=== PATIENT | male | born 1945 | race Caucasian/White ===

== ENCOUNTER 2019-10-27 09:07 | Outpatient (CLI) | payer MEDICARE, SELFPAY ==
--- NOTE | ~2019-10-27 | XR_ITS ---
XR lumbar spine 2-3V DATE: 10/27/2019 09:43 INDICATION: Chronic back pain. No known injury. TECHNIQUE: AP, lateral, coned lateral lumbosacral views COMPARISON: 05/10/2015 lumbar spine 10/08/2015 CT lumbar spine FINDINGS: There is minimal levoscoliosis. Again noted is severe degenerative disc disease and mild anterolisthesis at L2-3. There is moderate degenerative disc disease at L3-4. There is mild degenerative disease at L4-5. No fracture or bone destruction is evident. The included lower thoracic and lumbar pedicles are intac t. The sacroiliac joints are normal. IMPRESSION: Multilevel degenerative disc disease, most pronounced at L2-3, with associated grade 1 an terolisthesis Reviewed, dictated and finalized at location A. IMPRESSION: Multilevel degenerative disc disease, most pronounced at L2-3, with associated grade 1 anterolisthesis
[2019-10-27 09:20] LABS: Basophils Absolute Auto 0.01 K/mm3 (0.00-0.10); Basophils Percent Auto 0.1 % (0.0-1.0); Eosinophils Absolute Auto 0.12 K/mm3 (0.02-0.50); Eosinophils Percent Auto 1.7 % (1.0-6.0); Hematocrit 48.7 % (37.0-46.0); Hemoglobin 15.9 g/dL (12.4-15.3); Immature Granulocyte Absolute 0.02 K/mm3 (0.00-0.00); Immature Granulocyte Percent A 0.3 % (0.0-0.0); Lymphocytes Absolute Auto 1.19 K/mm3 (1.10-4.50); Mean Corpuscular HGB Conc 32.6 g/dL (32.0-36.0); Mean Corpuscular Hemoglobin 29.9 pg (27.0-31.0); Mean Corpuscular Volume 91.7 fL (78.0-102.0); Mean Platelet Volume 8.6 fl (8.7-11.0); Monocytes Absolute Auto 0.49 K/mm3 (0.10-0.90); Neutrophils Absolute Auto 5.2 K/mm3 (1.7-7.2); Neutrophils Percent Auto 73.9 % (50.0-70.0); Platelet Count Result 299 K/mm3 (150-420); Red Blood Count 5.31 M/mm3 (4.70-6.10); Red Cell Distribution Width 11.9 % (11.6-14.4)
[2019-10-27 09:23] LABS: Appearance Urine Clear (Clear); Bilirubin Urine Negative (Negative); Color Urine Yellow (Yellow); Glucose Urine UA Negative (Negative); Ketones Urine Negative (Negative); Leukocyte Esterase Ur Negative (Negative); Nitrate Urine Negative (Negative); Protein Urine Negative (Negative); Urobilinogen Urine 0.2 mg/dL (0.2-1.0)
[2019-10-27 09:30] LABS: Add Urine Microscopic? YES; Blood Urine Trace (Negative); RBC Urine 0-2 /hpf (0-2)
[2019-10-27 09:31] LABS: Bacteria Urine Trace /hpf; WBC Urine 0-3 /hpf (0-3)
[2019-10-27 10:10] LABS: Alanine Aminotransferase 32 U/L (16-63); Albumin Level 4.1 g/dL (3.4-5.0); Alkaline Phosphatase 70 U/L (46-116); Anion Gap 6 mmol/L (8-16); Aspartate Amino Transferase 19 U/L (15-37); Bilirubin,Total 0.8 mg/dL (0.00-1.00); Blood Urea Nitrogen 12 mg/dL (7-18); Calcium 9.3 mg/dL (8.5-10.1); Carbon Dioxide 30 mmol/L (21-32); Chloride 105 mmol/L (98-108); Cholesterol 241 mg/dL (0-200); Estimated Glomerular Filt Rate 57; Glucose 100 mg/dL (70-99); HDL Direct 60 mg/dL (40-60); LDL Cholesterol Calculated 156 mg/dL (<130); Osmolality Calculated 291 mOsm/kg (285-295); Potassium 4.4 mmol/L (3.5-5.1); Prostate Specific Antigen 3.3 ng/mL (< OR = 4.0); Sodium 141 mmol/L (136-145); Thyroid Stimulating Hormone 3.29 uIU/mL (0.36-3.74); Total Protein 7.2 g/dL (6.4-8.2); Triglycerides 126 mg/dL (0-150)
== END 2019-10-27 09:08 | disposition home or self-care (01) ==
PROVIDERS: PCP Internal Medicine; Visit Provider Internal Medicine
DX: E78.5 Hyperlipidemia, unspecified (principal); Z12.5 Encounter for screening for malignant neoplasm of prostate; N52.9 Male erectile dysfunction, unspecified; M54.9 Dorsalgia, unspecified; Z00.00 Encounter for general adult medical examination without abnormal findings
CPT/HCPCS: 36415; 72100; 80053; 80061; 81001; 84153; 84443; 85025; G0103

== ENCOUNTER 2020-01-28 14:26 | Outpatient (CLI) | payer MEDICARE, SELFPAY ==
--- NOTE | 2020-01-28 14:28 | ECG_ITS ---
Measurements Intervals [place] Rate: 70 P: 81 [place]: 171 QRS: -13 QRSD: 93 T: 48 QT: 392 QTc: 424 Interpretive Statements SINUS RHYTHM RSR' IN V1 OR V2, CONSIDER RIGHT VENTRICULAR HYPERTROPHY OR RIGHT VCD DELAYED PRECORDIAL R/S TRANSITION BORDERLINE ECG Electronically Signed On 01-28-2020 15:02:25 HAND CROCHETER by Sean Barajas D.O.
== END 2020-01-28 14:27 | disposition home or self-care (01) ==
PROVIDERS: PCP Internal Medicine; Visit Provider Surgery
DX: K40.90 Unilateral inguinal hernia, without obstruction or gangrene, not specified as recurrent (principal); F17.210 Nicotine dependence, cigarettes, uncomplicated
CPT/HCPCS: 36415; 86850; 86900; 86901; 93005

== ENCOUNTER 2020-01-30 00:38 | Outpatient (CLI) | payer MEDICARE, SELFPAY ==
[2020-01-30 20:15] LABS: SARS-CoV-2 RNA PCR Negative
== END 2020-01-30 00:39 | disposition home or self-care (01) ==
LOC: ANHCOVIDDT 00:38
PROVIDERS: PCP Internal Medicine; Visit Provider Surgery
DX: Z01.818 Encounter for other preprocedural examination (principal); Z20.828 Contact with and (suspected) exposure to other viral communicable diseases
CPT/HCPCS: 87635; C9803; U0003

== ENCOUNTER 2020-02-03 00:16 | Day surgery (SDC) | payer MEDICARE, SELFPAY ==
[2020-01-27 13:32] VITALS: BMI 22.7
--- NOTE | 2020-02-02 13:48 | WPDANESEPPF ---
Anes - Initial Pre Proc Eval Procedure: Operation Date: 02/03/20 09:00 Proposed Procedures p Laparoscopic Right Inguinal Hernia Repair With Mesh, Davinci Assisted - Eliseo Oconnor DO Date/Time: 02/02/20 13:48 Surgeon: Eliseo Oconnor DO Pre Op Diagnosis: Right Inguinal Hernia Patient Data Age: 74 Gender: M Height: 1.83 m Weight: 76 kg Allergies Allergy/AdvReac Type Severity Reaction Status Date / Time ezetimibe Allergy Unknown Cramping Verified 02/03/20 07:30 of the Muscles simvastatin Allergy Unknown Cramping Verified 02/03/20 07:30 of the Muscles Home Medications Medication Instructions Recorded Confirmed Type acetaminophen 325 mg capsule 325 mg PO Q6H PRN 01/01/20 02/03/20 History prednisolone acetate (PF) 1 % eye 1 drp OPHTHALMIC (EYE) 3XW 01/01/20 02/03/20 History drops,suspension sildenafil 25 mg tablet 25 mg PO DAILY PRN 01/01/20 02/03/20 History fluticasone propionate [Flonase] 1 spray INTRANASAL DAILY PRN 01/27/20 02/03/20 History multivitamin [Daily Multiple] 1 tablet PO DAILY 01/27/20 02/03/20 History Patient hx anesthesia problems: none Family hx anesthesia problems: none PMFSH Past Medical History Medical History (Updated 02/02/20 @ 13:48 by John Linares DO) Emphysema, unspecified History of gastric ulcer Hyperlipidemia Surgical History Surgical History History of eye surgery History of hernia repair History of repair of rotator cuff Family History Family History Father Hernia Mother Family history of Alzheimer's disease Social History Social History Smoking packs per day: 1 Smoking cigarettes per day: 20.0 Years smoked: 20 Smoking pack-years: 20.00 Smoking status: Former smoker Smoking end date: 08/18/89 Alcohol intake: current Drinks per week: 2 Substance use: never Living arrangements: with family Spiritual care concerns: No Anes - Eval Final PreProcedure Day of Procedure 02/02/20 13:48 Patient weight: normal Heart: regular rate and rhythm Lungs: clear to auscultation and normal air movement Airway: Mallampati scale class II Neurological: alert and oriented Last oral intake: >/= 8 hours ASA classification: III Emergent: no Anesthetic plan: proceed Anesthesia type and monitoring: general ETT and standard monitoring Informed Consent: The patient's anesthetic plan and its attendant risks and benefits were discussed with the patient/family/POA. Questions were solicited and answers provided to the satisfaction of the patient/family/POA.
[2020-02-03] VITALS (11 sets, daily range): BP systolic 105–163; BP diastolic 60–91; PULSE 56–86; RESP 13–18; TEMP 35.9–36.1; O2SAT 99–100
[2020-02-03] MEDS: ACETAMINOPHEN 500 MG TABLET 1000 MG PO (07:34)
[2020-02-03] MEDS: KETOROLAC 15 MG/ML VIAL (*BKC) IV PUSH (07:54)
[2020-02-03] MEDS: LACTATED RINGERS 1,000 ML 30 ML IV CONT ×2 (07:54→10:58)
--- NOTE | 2020-02-03 09:03 | PM.IMHP ---
H&P: HPI History of Present Illness Date/Time: 02/03/20 09:03 Cheif Complaint: RIH Narrative: Festus Clark is a 74 year old male who presents for right inguinal hernia repair. He reports no changes since last seen in office. Review of Systems Review of Systems: All systems reviewed & are unremarkable except as noted in HPI and below Constitutional: Constitutional: Denies chills, Denies fever(s), Denies headache(s) and Denies weight loss Eyes: Eyes: Denies change in vision ENT: Denies dizziness, Denies headache(s), Denies neck mass and Denies throat swelling Cardiovascular: Cardiovascular: Denies chest pain, Denies lightheadedness and Denies dyspnea Respiratory: Respiratory: Denies cough, Denies dyspnea and Denies wheezing Gastrointestinal: Gastrointestinal: Denies abdominal pain, Denies change in bowel habits, Denies nausea and Denies vomiting Genitourinary: Genitourinary: Denies hematuria and Denies dysuria Musculoskeletal: Musculoskeletal: Reports as per HPI Integumentary/Breasts: Skin/Breast: Reports as per HPI Neurologic: Denies dizziness and Denies headache(s) Allergic/Immunologic: Allergic/Immunologic: Denies throat swelling and Denies wheezing PMF Past Medical History Medical History (Updated 02/02/20 @ 13:48 by John Linares DO) Emphysema, unspecified History of gastric ulcer Hyperlipidemia Surgical History Surgical History History of eye surgery History of hernia repair History of repair of rotator cuff Family History Family History Father Hernia Mother Family history of Alzheimer's disease Social History Social History Smoking packs per day: 1 Smoking cigarettes per day: 20.0 Years smoked: 20 Smoking pack-years: 20.00 Smoking status: Former smoker Smoking end date: 08/18/89 Alcohol intake: current Drinks per week: 2 Substance use: never Living arrangements: with family Spiritual care concerns: No Meds Home Medications and Allergies Home Medications Medication Instructions Recorded Confirmed Type acetaminophen 325 mg capsule 325 mg PO Q6H PRN 01/01/20 02/03/20 History prednisolone acetate (PF) 1 % eye 1 drp OPHTHALMIC (EYE) 3XW 01/01/20 02/03/20 History drops,suspension sildenafil 25 mg tablet 25 mg PO DAILY PRN 01/01/20 02/03/20 History fluticasone propionate [Flonase] 1 spray INTRANASAL DAILY PRN 01/27/20 02/03/20 History multivitamin [Daily Multiple] 1 tablet PO DAILY 01/27/20 02/03/20 History Allergies Allergy/AdvReac Type Severity Reaction Status Date / Time ezetimibe Allergy Unknown Cramping Verified 02/03/20 07:30 of the Muscles simvastatin Allergy Unknown Cramping Verified 02/03/20 07:30 of the Muscles Vital Signs Vital Signs - 24 hr 02/03/20 07:02 Temperature 35.9 C L Pulse Rate 79 Respiratory Rate 16 Blood Pressure 163/79 H Pulse Oximetry 99 Exam Const: General: no acute distress and alert Orientation/consciousness: patient oriented x3 HENMT: Head: normocephalic and atraumatic Ears: hearing grossly normal bilaterally General nose exam: Normal nares present Mouth: Yes Normal oral and palatal mucosa present Eyes: Periorbital: periorbital findings normal Sclera: sclerae normal EOM: EOMs intact bilaterally Neck: Neck: normal visual inspection, no lymphadenopathy and trachea midline Chest: Chest palpation & inspection: normal inspection of the chest Resp: Effort & Inspection: normal respiratory effort Auscultation: clear to auscultation bilaterally Cardio: Jugular venous distension: no JVD Rate: regular rate Rhythm: regular rhythm Heart sounds: S1 normal heart sound present and S2 normal heart sound present Peripheral pulses: Peripheral pulses 2+ throughout GI: Inspection: normal to inspection GI Palp: Y
--- NOTE | 2020-02-03 09:05 | WPDHPUPDATE1 ---
History and Physical Update Update Date/Time: 02/03/20 09:05 History and Physical has been reviewed, including an updated exam of the patient. There are NO changes in the patient's condition. Risks, benefits, and alternatives have been discussed and questions answered. Patient agrees to proceed with procedure.
[2020-02-03] MEDS: ceFAZolin 2 GM/D5W 50 ML 2 GM/50 ML BAG IVPB (09:38)
[2020-02-03] MEDS: BUPIVACAINE/EPINEPHRINE 0.25% 10 ML VIAL 30 ML INFILTRATE (10:47)
--- NOTE | 2020-02-03 10:50 | PM.PROC ---
Procedure Note - Detailed Date of procedure: 02/03/20 Pre-op diagnosis: Right Inguinal Hernia Post-op diagnosis: same (Direct [facility]) Procedure performed: Laparoscopic right inguinal hernia repair with Progrip mesh, da Nahomi assisted Description of procedure: Procedure as well as risks, benefits, and alternatives were discussed with the patient. Written consent was obtained and placed in chart prior to procedure. Patient was brought back to surgical suite. He was placed supine on operating table. Time-out was done to confirm patient and procedure. He was then intubated by Anesthesia Department. His abdomen was prepped and draped in sterile fashion using chlorhexidine prep. 0.5% bupivacaine with epinephrine was infiltrated at each location for incision. A 12 millimeter transverse incision was made just superior to the umbilicus using a 15 blade scalpel. Blunt dissection was carried out down to the linea alba. A vertical incision was made at the linea alba using a 15 blade scalpel. The peritoneum was then bluntly entered. A 12 millimeter trocar was inserted and carbon dioxide insufflation was used to create a pneumoperitoneum. A camera was inserted and the abdominal cavity was inspected. The patient was placed in slight Trendelenburg position. An 8 millimeter incision was made on the right lateral abdomen and an 8 millimeter trocar was inserted under direct visualization. Another 8 millimeter incision was made in the left lateral abdomen and an 8 millimeter trocar was inserted under direct visualization. The robotic arms were brought up to the patient's bedside and secured to the ports. The camera and instruments were inserted. I then moved over to the robotic console and took control of the camera and instruments. After careful inspection of the abdominal cavity, I began scoring the peritoneum along the right lower quadrant using scissors with electrocautery. The preperitoneal plane was entered and this was carefully dissected caudally along the inferior epigastric vessels. Careful dissection with scissors with electrocautery and blunt dissection was used to continue this dissection. I dissected far enough laterally to allow for mesh placement, and also dissected medially to identify the pubic arch and Ernesto's ligament. The hernia sac was identified and carefully dissected posteriorly. The cord contents were also identified and the peritoneum was carefully dissected far enough posteriorly to allow for mesh placement. Once an adequate pocket was created, I then placed the mesh within the preperitoneal pocket and carefully unfolded it. The mesh was centered on the hernia defect with adequate overlap circumferentially. The inferior edge of the mesh was inspected to ensure that it was far enough away from the peritoneal edge. The mesh appeared in proper position overlying the entire myopectineal orifice. The peritoneum was then closed over the mesh using a 3-0 V-lock running absorbable suture. The robotic instruments were removed. The robotic arms were disengaged from the ports and moved away from the bedside. The patient was flattened out in bed, the ports were removed under direct visualization, and the pneumoperitoneum was released. The fascia of the umbilical incision was approximated using an 0 Vicryl [id number] suture. The skin of the incisions was approximated using 4-0 Monocryl subcuticular suture, and Exofin glue was applied on top. The patient was awakened from anesthesia, extubated, and transferred to recovery. Implants: Progrip Mesh 10cm x 15cm Anesthesia: GETA and local (0.5% bupivicaine with epi) Surgeon: Eliseo Oconnor DO Estimated blood loss (mL): 5 Drains: No Packing: No Pathology: none sent Complications: No immediate complications Condition: stable Disposition: same day Findings: This is a 74-year-old man who presents with a right groin bulge that he has noticed over the past year. He has some occasional discomfort
--- NOTE | 2020-02-03 11:20 | SUR.PHASEI ---
PATIENT REPORTED DIFFICULTY BREATHING. BILATERAL BREATH SOUNDS CLEAR; UNLABORED. HOB RAISED WHICH PT STATES IS HELPING.
== END 2020-02-03 14:28 | disposition home or self-care (01) ==
PROVIDERS: PCP Internal Medicine; Visit Provider Surgery
PROC: 8E0Y4CZ Robotic Assisted Procedure of Lower Extremity, Percutaneous Endoscopic Approach (ICD-10-PCS; CPT 49650; principal; 2020-02-03 09:00)
DX: K40.90 Unilateral inguinal hernia, without obstruction or gangrene, not specified as recurrent (principal); J43.9 Emphysema, unspecified; E78.5 Hyperlipidemia, unspecified; Z87.11 Personal history of peptic ulcer disease; Z87.891 Personal history of nicotine dependence
CPT/HCPCS: 49650; S2900; A9270; C1781; J0330; J0690; J1100; J1885; J2405; J2704; J3010; J7120

== ENCOUNTER 2020-12-19 07:14 | Outpatient (CLI) | payer MEDICARE, SELFPAY ==
--- NOTE | ~2020-12-19 | XR_ITS ---
EXAMINATION:XR_CERV2-3V_CR DATE: 12/19/2020 07:44 INDICATION: Neck pain TECHNIQUE: AP, lateral, and odontoid views of the cervical spine are provided. COMPARISON: None FINDINGS: There are 2 mm of anterolisthesis of C4 on C5. The odontoid is intact. No fracture is ident ified. The vertebral body heights are maintained. There is moderate loss of intervertebral disc space height at C5-6 and mild loss of disc space height at C3-4, C6-7, and C7-T1. Small degenerative osteo phytes project from the anterior endplates of multiple vertebral bodies. There is moderate to severe multilevel facet and uncovertebral joint osteoarthritis. Prevertebral soft tissues are normal. IMPRESSION: 1. Moderate cervical spondylosis without acute findings. Reviewed, dictated and finalized at location B.
[2020-12-19 07:28] LABS: Basophils Absolute Auto 0.02 K/mm3 (0.00-0.10); Basophils Percent Auto 0.3 % (0.0-1.0); Eosinophils Absolute Auto 0.14 K/mm3 (0.02-0.50); Eosinophils Percent Auto 1.9 % (1.0-6.0); Hematocrit 47.5 % (37.0-46.0); Hemoglobin 16.1 g/dL (12.4-15.3); Immature Granulocyte Absolute 0.02 K/mm3 (0.00-0.00); Immature Granulocyte Percent A 0.3 % (0.0-0.0); Lymphocytes Absolute Auto 1.14 K/mm3 (1.10-4.50); Lymphocytes Percent Auto 15.9 % (18.0-42.0); Mean Corpuscular HGB Conc 33.9 g/dL (32.0-36.0); Mean Corpuscular Hemoglobin 31.1 pg (27.0-31.0); Mean Corpuscular Volume 91.7 fL (78.0-102.0); Mean Platelet Volume 8.4 fl (8.7-11.0); Monocytes Absolute Auto 0.61 K/mm3 (0.10-0.90); Monocytes Percent Auto 8.5 % (2.0-11.0); Neutrophils Absolute Auto 5.3 K/mm3 (1.7-7.2); Neutrophils Percent Auto 73.1 % (50.0-70.0); Platelet Count Result 319 K/mm3 (150-420); Red Blood Count 5.18 M/mm3 (4.70-6.10); White Blood Count 7.2 K/mm3 (4.8-10.8)
[2020-12-19 07:30] LABS: Add Urine Microscopic? NO; Appearance Urine Clear (Clear); Bilirubin Urine Negative (Negative); Blood Urine Negative (Negative); Color Urine Yellow (Yellow); Glucose Urine UA Negative (Negative); Ketones Urine Negative (Negative); Leukocyte Esterase Ur Negative (Negative); Nitrate Urine Negative (Negative); Protein Urine Negative (Negative); Urobilinogen Urine 0.2 mg/dL (0.2-1.0)
[2020-12-19 08:25] LABS: Alanine Aminotransferase 33 U/L (16-63); Albumin Level 3.8 g/dL (3.4-5.0); Alkaline Phosphatase 75 U/L (46-116); Anion Gap 8 mmol/L (8-16); Aspartate Amino Transferase 16 U/L (15-37); Bilirubin,Total 0.8 mg/dL (0.00-1.00); Blood Urea Nitrogen 14 mg/dL (7-18); Calcium 8.6 mg/dL (8.5-10.1); Carbon Dioxide 32 mmol/L (21-32); Chloride 105 mmol/L (98-108); Cholesterol 220 mg/dL (0-200); Estimated Glomerular Filt Rate 58; Glucose 95 mg/dL (70-99); HDL Direct 56 mg/dL (40-60); LDL Cholesterol Calculated 138 mg/dL (<130); Osmolality Calculated 300 mOsm/kg (285-295); Potassium 4.4 mmol/L (3.5-5.1); Prostate Specific Antigen 3.2 ng/mL (< OR = 4.0); Sodium 145 mmol/L (136-145); Total Protein 6.6 g/dL (6.4-8.2); Triglycerides 129 mg/dL (0-150)
== END 2020-12-19 07:15 | disposition home or self-care (01) ==
LOC: CHSLAB 07:17
PROVIDERS: PCP Internal Medicine; Visit Provider Internal Medicine
DX: M54.2 Cervicalgia (principal); R20.0 Anesthesia of skin; E78.5 Hyperlipidemia, unspecified; Z12.5 Encounter for screening for malignant neoplasm of prostate
CPT/HCPCS: 36415; 72040; 80053; 80061; 81003; 84153; 85025; G0103

== ENCOUNTER 2021-12-22 08:02 | Outpatient (CLI) | payer MEDICARE, SELFPAY ==
[2021-12-22 08:20] LABS: Basophils Absolute Auto 0.01 K/mm3 (0.00-0.10); Basophils Percent Auto 0.1 % (0.0-1.0); Eosinophils Absolute Auto 0.23 K/mm3 (0.02-0.50); Eosinophils Percent Auto 3.4 % (1.0-6.0); Hematocrit 45.4 % (37.0-46.0); Hemoglobin 15.2 g/dL (12.4-15.3); Immature Granulocyte Absolute 0.02 K/mm3 (0.00-0.00); Immature Granulocyte Percent A 0.3 % (0.0-0.0); Lymphocytes Absolute Auto 1.28 K/mm3 (1.10-4.50); Mean Corpuscular HGB Conc 33.5 g/dL (32.0-36.0); Mean Corpuscular Hemoglobin 30.5 pg (27.0-31.0); Mean Corpuscular Volume 91.2 fL (78.0-102.0); Mean Platelet Volume 8.6 fl (8.7-11.0); Monocytes Absolute Auto 0.56 K/mm3 (0.10-0.90); Monocytes Percent Auto 8.3 % (2.0-11.0); Neutrophils Absolute Auto 4.7 K/mm3 (1.7-7.2); Neutrophils Percent Auto 68.9 % (50.0-70.0); Platelet Count Result 311 K/mm3 (150-420); Red Blood Count 4.98 M/mm3 (4.70-6.10); Red Cell Distribution Width 11.9 % (11.6-14.4); White Blood Count 6.8 K/mm3 (4.8-10.8)
[2021-12-22 08:23] LABS: Appearance Urine Clear (Clear); Bilirubin Urine Negative (Negative); Blood Urine Negative (Negative); Glucose Urine UA Negative (Negative); Ketones Urine Negative (Negative); Leukocyte Esterase Ur Negative (Negative); Nitrate Urine Negative (Negative); Protein Urine Negative (Negative); Urobilinogen Urine 0.2 mg/dL (0.2-1.0); pH Urine 6.5 (5.0-8.0)
[2021-12-22 08:25] LABS: Add Urine Microscopic? NO; Color Urine Light Yellow (Yellow)
[2021-12-22 08:49] LABS: Alanine Aminotransferase 24 U/L (16-63); Albumin Level 3.7 g/dL (3.4-5.0); Alkaline Phosphatase 75 U/L (46-116); Anion Gap 4 mmol/L (8-16); Aspartate Amino Transferase 15 U/L (15-37); Bilirubin,Total 0.8 mg/dL (0.00-1.00); Blood Urea Nitrogen 18 mg/dL (7-18); Calcium 8.9 mg/dL (8.5-10.1); Carbon Dioxide 32 mmol/L (21-32); Chloride 106 mmol/L (98-108); Cholesterol 218 mg/dL (0-200); Estimated Glomerular Filt Rate 54; Glucose 92 mg/dL (70-99); HDL Direct 58 mg/dL (40-60); LDL Cholesterol Calculated 142 mg/dL (<130); Osmolality Calculated 295 mOsm/kg (285-295); Potassium 4.1 mmol/L (3.5-5.1); Prostate Specific Antigen 3.7 ng/mL (< OR = 4.0); Sodium 142 mmol/L (136-145); Total Protein 6.7 g/dL (6.4-8.2); Triglycerides 90 mg/dL (0-150)
== END 2021-12-22 08:03 | disposition home or self-care (01) ==
LOC: CHSLAB 08:05
PROVIDERS: PCP Internal Medicine; Visit Provider Internal Medicine
DX: E78.5 Hyperlipidemia, unspecified (principal); Z12.5 Encounter for screening for malignant neoplasm of prostate
CPT/HCPCS: 36415; 80053; 80061; 81003; 84153; 85025; G0103

== ENCOUNTER 2022-01-01 09:36 | Outpatient (CLI) | payer MEDICARE, SELFPAY ==
--- NOTE | ~2022-01-01 | XR_ITS ---
XR chest 2V DATE: 01/01/2022 10:02 INDICATION: Hypertension TECHNIQUE: PA and lateral views COMPARISON: 10/07/2017 PA and lateral chest FINDINGS: Bilateral hyperinflation, suggesting COPD. There is mild infiltrate, atelectasis or less likely scarring at the posterior left lung base, left l ower lobe. No pulmonary infiltrate or consolidation is noted otherwise. No pleural effusion or pulmonary vascular congestion or pneumothorax. Heart size is normal. Is aortic calcification and mild unfolding. Mild dextroscoliosis of the thoracic spine. IMPRESSION: Mild infiltrate or atelectasis at the posterior left lung base, left lower lobe Bilateral hyperinflation consistent with COPD Aortic atherosclerosis Reviewed, dictated and finalized at location A. DRY ATTENDANT IMPRESSION: Mild infiltrate or atelectasis at the posterior left lung base, lef t lower lobe Bilateral hyperinflation consistent with COPD Aortic atherosclerosis
== END 2022-01-01 09:37 | disposition home or self-care (01) ==
LOC: CHSIMG 09:38
PROVIDERS: PCP Internal Medicine; Visit Provider Internal Medicine
DX: I10 Essential (primary) hypertension (principal)
CPT/HCPCS: 71046

== ENCOUNTER 2022-01-22 12:16 | Outpatient (CLI) | payer MEDICARE, SELFPAY ==
--- NOTE | 2022-01-22 13:25 | ECHO_ITS ---
Patient Info Name: Festus Clark Age: 76 years : 1945 Gender: Male Ht: 72 in Wt: 164 lbs BSA: 1.94 m2 HR: 74 bpm BP: 177 / 76 mmHg Technical Quality: Good Exam Date: 01/22/2022 1:33 PM Exam Location: [facility] Patient Status: Outpatient Admit Date: 01/22/2022 Staff Ordering Physician: Matthew Townsend MD Decoration Checker: Zach Conte RDCS, RT Attending Provider: Matthew Townsend MD Exam Type: CA echo doppler color flow Study Info Indications I10 - Essential (primary) hypertension Complete two-dimensional, color flow and Doppler transthoracic echocardiogram is performed. Strain analysis performed. Summary 1. Complete two-dimensional, color flow and Doppler transthoracic echocardiogram is performed. 2. Left ventricular chamber dimension is normal. 3. Left ventricular systolic function is normal, estimated at 60-65%. 4. There is mildly increased left ventricular wall thickness. 5. The left ventricular diastolic function is normal. 6. E/e' 7 is not elevated. 7. Global longitudinal strain is normal at -21.6%. 8. There is trace tricuspid valve regurgitation. 9. No pulmonary hypertension, estimated pulmonary arterial systolic pressure is 33 mmHg. Left Ventricle E/e' 7 is not elevated. Global longitudinal strain is normal at -21.6%. Left ventricular chamber dimension is normal. Left ventricular systolic function is normal, estimated at 60-65%. There is mildly increased left ventricular wall thickness. The left ventricular diastolic function is normal. Right Ventricle Right ventricular chamber dimension is normal. Right ventricular systolic function is normal. Left Atria Left atrial chamber dimension is normal. Right Atria Right atrial chamber dimension is normal. Aortic Valve The aortic valve is trileaflet. There is no aortic valve stenosis. There is no aortic valve regurgitation. Pulmonic Valve There is no pulmonic regurgitation. Mitral Valve There is no mitral valve stenosis. There is no mitral valve regurgitation. Tricuspid Valve There is trace tricuspid valve regurgitation. No pulmonary hypertension, estimated pulmonary arterial systolic pressure is 33 mmHg. Pericardium/Pleural There is no pericardial effusion. Inferior Vena Cava Normal inferior vena cava with >50% collapse upon inspiration consistent with normal right atrial pressure, 5 mmHg. Aorta The aortic root size at the sinus of Valsalva is normal. Left Ventricular Outflow Tract Name Value Normal LVOT 2D LVOT Diameter 2.0 cm LVOT Doppler LVOT Peak Velocity 75 cm/s LVOT Peak Gradient 2 mmHg LVOT Mean Gradient 1 mmHg LVOT VTI 16 cm LVOT VTI/AV VTI Ratio 0.8 LVOT Stroke Volume 50 ml Mitral Valve Name Value Normal MV Doppler
== END 2022-01-22 12:17 | disposition home or self-care (01) ==
LOC: CHSIMG 12:18
PROVIDERS: PCP Internal Medicine; Visit Provider Internal Medicine
DX: I10 Essential (primary) hypertension (principal)
CPT/HCPCS: 93306

== ENCOUNTER 2022-04-20 07:18 | Outpatient (CLI) | payer MEDICARE, SELFPAY ==
--- NOTE | ~2022-04-20 | CT_ITS ---
CT of the Abdomen and Pelvis: Indication: Left lower quadrant pain Technique: 2.5 mm axial scans were obtained through the abdomen and pelvis following intravenous adm inistration of 100 cc of Omnipaque 350. Dose reduction technique was used on this scan by utilizing a utomated exposure control and iterative reconstruction technique. The dose-length product (DLP) was 4 22.41 mGy-cm. COMPARISON: 10/24/2017 Findings: Scans through the lung bases are unremarkable. The liver, spleen, pancreas, gallbladder, adrenals and kidneys are within normal limits. No evidence of aortic aneurysm. There are atherosclerotic calcifications of the aorta. No lymphadenopathy. No bowel obstruction or bowel wall thickening. There is sigmoid diverticulosis, without evidence for acute diverticulitis.. Images through the pelvis were performed. Urinary bladder unremarkable. Prostate gland is significant ly enlarged, and indents the bladder base. No ascites. Impression: No acute abnormality. Enlarged prostate gland. Reviewed, dictated and finalized at [facility]. CTION MOLDING PROCESS TECHNICIAN Impression: No acute abnormality. Enlarged prostate gland.
[2022-04-20 07:43] LABS: Estimated Glomerular Filt Rate 59
== END 2022-04-20 07:19 | disposition home or self-care (01) ==
LOC: CHSIMG 07:20
PROVIDERS: PCP Internal Medicine; Visit Provider Internal Medicine
DX: R10.32 Left lower quadrant pain (principal); N40.0 Benign prostatic hyperplasia without lower urinary tract symptoms
CPT/HCPCS: 74177; Q9967

== ENCOUNTER 2023-01-03 07:38 | Outpatient (CLI) | payer MEDICARE, SELFPAY ==
[2023-01-03 07:49] LABS: Basophils Absolute Auto 0.01 K/mm3 (0.00-0.10); Basophils Percent Auto 0.2 % (0.0-1.0); Eosinophils Absolute Auto 0.15 K/mm3 (0.02-0.50); Eosinophils Percent Auto 2.3 % (1.0-6.0); Hematocrit 45.9 % (37.0-46.0); Hemoglobin 15.2 g/dL (12.4-15.3); Immature Granulocyte Absolute 0.02 K/mm3 (0.00-0.00); Immature Granulocyte Percent A 0.3 % (0.0-0.0); Lymphocytes Absolute Auto 1.23 K/mm3 (1.10-4.50); Lymphocytes Percent Auto 18.7 % (18.0-42.0); Mean Corpuscular HGB Conc 33.1 g/dL (32.0-36.0); Mean Corpuscular Hemoglobin 30.8 pg (27.0-31.0); Mean Corpuscular Volume 92.9 fL (78.0-102.0); Mean Platelet Volume 8.5 fl (8.7-11.0); Monocytes Absolute Auto 0.59 K/mm3 (0.10-0.90); Neutrophils Absolute Auto 4.6 K/mm3 (1.7-7.2); Neutrophils Percent Auto 69.5 % (50.0-70.0); Platelet Count Result 301 K/mm3 (150-420); Red Blood Count 4.94 M/mm3 (4.70-6.10); Red Cell Distribution Width 12.3 % (11.6-14.4); White Blood Count 6.6 K/mm3 (4.8-10.8)
[2023-01-03 07:51] LABS: Appearance Urine Clear (Clear); Bilirubin Urine Negative (Negative); Blood Urine Negative (Negative); Color Urine Light Yellow (Yellow); Glucose Urine UA Negative (Negative); Ketones Urine Negative (Negative); Leukocyte Esterase Ur Negative (Negative); Nitrate Urine Negative (Negative); Protein Urine Negative (Negative); Specific Grav Ur <= 1.005 (1.010-1.020); Urobilinogen Urine 0.2 mg/dL (0.2-1.0); pH Urine 6.5 (5.0-8.0)
[2023-01-03 07:55] LABS: Add Urine Microscopic? NO
[2023-01-03 08:35] LABS: Alanine Aminotransferase 32 U/L (16-63); Albumin Level 3.5 g/dL (3.4-5.0); Alkaline Phosphatase 81 U/L (46-116); Anion Gap 4 mmol/L (8-16); Aspartate Amino Transferase 35 U/L (15-37); Bilirubin,Total 0.8 mg/dL (0.00-1.00); Blood Urea Nitrogen 16 mg/dL (7-18); Calcium 8.8 mg/dL (8.5-10.1); Carbon Dioxide 34 mmol/L (21-32); Chloride 104 mmol/L (98-108); Cholesterol 231 mg/dL (0-200); Estimated Glomerular Filt Rate 59; Glucose 95 mg/dL (70-99); HDL Direct 66 mg/dL (40-60); LDL Cholesterol Calculated 148 mg/dL (<130); Osmolality Calculated 295 mOsm/kg (285-295); Potassium 4.6 mmol/L (3.5-5.1); Sodium 142 mmol/L (136-145); Total Protein 6.4 g/dL (6.4-8.2); Triglycerides 86 mg/dL (0-150)
== END 2023-01-03 07:39 | disposition home or self-care (01) ==
LOC: CHSLAB 07:40
PROVIDERS: PCP Internal Medicine; Visit Provider Internal Medicine
DX: E78.5 Hyperlipidemia, unspecified (principal); I10 Essential (primary) hypertension; Z12.5 Encounter for screening for malignant neoplasm of prostate
CPT/HCPCS: 36415; 80053; 80061; 81003; 84153; 85025; G0103

== ENCOUNTER 2024-01-06 07:24 | Outpatient (CLI) | payer MEDICARE, SELFPAY ==
[2024-01-06 07:48] LABS: Basophils Absolute Auto 0.02 K/mm3 (0.00-0.10); Basophils Percent Auto 0.3 % (0.0-1.0); Eosinophils Absolute Auto 0.22 K/mm3 (0.02-0.50); Hematocrit 44.9 % (37.0-46.0); Hemoglobin 14.8 g/dL (12.4-15.3); Immature Granulocyte Absolute 0.01 K/mm3 (0.00-0.00); Immature Granulocyte Percent A 0.1 % (0.0-0.0); Lymphocytes Absolute Auto 1.28 K/mm3 (1.10-4.50); Lymphocytes Percent Auto 17.3 % (18.0-42.0); Mean Corpuscular Hemoglobin 29.8 pg (27.0-31.0); Mean Corpuscular Volume 90.3 fL (78.0-102.0); Mean Platelet Volume 8.3 fl (8.7-11.0); Monocytes Absolute Auto 0.52 K/mm3 (0.10-0.90); Neutrophils Absolute Auto 5.35 K/mm3 (1.70-7.20); Neutrophils Percent Auto 72.3 % (50.0-70.0); Platelet Count Result 310 K/mm3 (150-420); Red Blood Count 4.97 M/mm3 (4.70-6.10); Red Cell Distribution Width 12.4 % (11.6-14.4); White Blood Count 7.4 K/mm3 (4.8-10.8)
[2024-01-06 07:52] LABS: Add Urine Microscopic? NO; Appearance Urine Clear (Clear); Bilirubin Urine Negative (Negative); Blood Urine Negative (Negative); Color Urine Yellow (Yellow); Glucose Urine UA Negative (Negative); Ketones Urine Negative (Negative); Leukocyte Esterase Ur Negative (Negative); Nitrate Urine Negative (Negative); Protein Urine Negative (Negative); Specific Grav Ur 1.015 (1.010-1.020)
[2024-01-06 08:40] LABS: Alanine Aminotransferase 31 U/L (16-63); Albumin Level 3.5 g/dL (3.4-5.0); Alkaline Phosphatase 75 U/L (46-116); Anion Gap 7 mmol/L (4-12); Aspartate Amino Transferase 16 U/L (15-37); Bilirubin,Total 0.7 mg/dL (0.00-1.00); Blood Urea Nitrogen 13 mg/dL (7-18); Calcium 8.9 mg/dL (8.5-10.1); Carbon Dioxide 30 mmol/L (21-32); Chloride 105 mmol/L (98-108); Cholesterol 235 mg/dL (0-200); Estimated Glomerular Filt Rate > 60; Glucose 92 mg/dL (70-99); HDL Direct 59 mg/dL (40-60); LDL Cholesterol Calculated 157 mg/dL (<130); Osmolality Calculated 294 mOsm/kg (285-295); Potassium 4.3 mmol/L (3.5-5.1); Prostate Specific Antigen 4.8 ng/mL (< OR = 4.0); Sodium 142 mmol/L (136-145); Total Protein 6.2 g/dL (6.4-8.2); Triglycerides 95 mg/dL (0-150)
== END 2024-01-06 07:25 | disposition home or self-care (01) ==
LOC: CHSLAB 07:27
PROVIDERS: PCP Internal Medicine; Visit Provider Internal Medicine
DX: Z12.5 Encounter for screening for malignant neoplasm of prostate (principal); E78.5 Hyperlipidemia, unspecified; R03.0 Elevated blood-pressure reading, without diagnosis of hypertension
CPT/HCPCS: 36415; 80053; 80061; 81003; 84153; 85025; G0103

== ENCOUNTER 2024-01-20 07:09 | Outpatient (CLI) | payer MEDICARE, SELFPAY ==
--- NOTE | ~2024-01-20 | US_ITS ---
EXAMINATION: US carotid duplex BI DATE: 01/20/2024 07:41 INDICATION: Left carotid bruit TECHNIQUE: Grayscale, color Doppler, and pulsed Doppler images of the cervical carotid arteries were obtained. The degree of vessel stenosis is placed in one of the following categories: normal, <50%, 5 0-69%, >=70% but less than near-occlusion, near-occlusion, or total occlusion. Note that percent sten osis relative to normal distal artery lumen diameter is indirectly measured from velocity measurement s as described by Teddy, et al. Radiology 2003; [id number]:[id number]. COMPARISON: None. FINDINGS: RIGHT: The right common carotid artery (CCA) peak systolic velocity (PSV) is 98 cm/s. The right internal car otid artery (ICA) PSV is 87 cm/s. The right ICA end-diastolic velocity (EDV) is 13 cm/s. The right IC A/CCA PSV ratio is 0.9. Grayscale and color Doppler images yield an estimate of <50% diameter reducti on from plaque in the ICA. The external carotid artery (ECA) PSV is 66 cm/s. There is antegrade flow in the right vertebral artery. LEFT: The left CCA PSV is 91 cm/s. The left ICA PSV is 115 cm/s. The left ICA EDV is 28 cm/s. The left ICA/ CCA PSV ratio is 1.3. Grayscale and color Doppler images yield an estimate of <50% diameter reduction from plaque in the ICA. The ECA PSV is 101 cm/s. There is antegrade flow in the left vertebral arter y. IMPRESSION: 1. <50% stenosis in the right internal carotid artery. 2. <50% stenosis in the left internal carotid artery. Reviewed, dictated and finalized at location A. RAISER
--- NOTE | ~2024-01-20 | CT_ITS ---
Non-contrast Head CT History: Memory loss, CVA Technique: Axial non-contrast imaging of the brain was performed. Dose reduction technique was used on this scan by utilizing automated exposure control and iterative reconstruction technique. The dose -length product (DLP) was 605.33 mGy-cm. Findings: There is no evidence of intracranial hemorrhage, mass lesion, or acute infarct. Probable s mall punctate calcifications in the white matter in the right parietal lobe.. The ventricles and sub arachnoid spaces are normal in size. The calvarium appears normal. The visualized paranasal sinuses and mastoid air cells are clear. Impression: No acute abnormality. Probable small punctate calcifications in the white matter in the right parietal lobe, nonspecific, b ut likely chronic in nature. Reviewed, dictated and finalized at location . E STUNT PERFORMER Impression: No acute abnormality. Probable small punctate calcifications in the white matter in the right parieta l lobe, nonspecific, but likely chronic in nature.
== END 2024-01-20 07:10 | disposition home or self-care (01) ==
LOC: CHSIMG 07:12
PROVIDERS: PCP Internal Medicine; Visit Provider Internal Medicine
DX: R09.89 Other specified symptoms and signs involving the circulatory and respiratory systems (principal); R41.3 Other amnesia; I65.23 Occlusion and stenosis of bilateral carotid arteries
CPT/HCPCS: 70450; 93880

== ENCOUNTER 2024-04-28 11:02 | Outpatient (CLI) | payer MEDICARE, SELFPAY ==
--- NOTE | ~2024-04-28 | XR_ITS ---
CHEST RADIOGRAPH, PA AND LATERAL CLINICAL HISTORY: Pneumonia diag 1 week ago, increase cough . COMPARISON: 01/01/2022 TECHNIQUE: PA and lateral views of the chest. FINDINGS The cardiomediastinal silhouette is unremarkable. The lungs are clear. Visualized osseous structures and soft tissues are unremarkable. IMPRESSION: No focal infiltrate or effusion. Reviewed, dictated and finalized at location A.
[2024-04-28 11:15] LABS: Basophils Absolute Auto 0.02 K/mm3 (0.00-0.10); Basophils Percent Auto 0.2 % (0.0-1.0); Eosinophils Absolute Auto 0.05 K/mm3 (0.02-0.50); Eosinophils Percent Auto 0.6 % (1.0-6.0); Hematocrit 43.3 % (37.0-46.0); Hemoglobin 14.4 g/dL (12.4-15.3); Immature Granulocyte Absolute 0.03 K/mm3 (0.00-0.00); Immature Granulocyte Percent A 0.4 % (0.0-0.0); Lymphocytes Absolute Auto 1.24 K/mm3 (1.10-4.50); Lymphocytes Percent Auto 14.7 % (18.0-42.0); Mean Corpuscular HGB Conc 33.3 g/dL (32-36); Mean Corpuscular Hemoglobin 30.5 pg (27.0-31.0); Mean Corpuscular Volume 91.7 fL (78.0-102.0); Mean Platelet Volume 8.6 fl (8.7-11.0); Monocytes Absolute Auto 0.68 K/mm3 (0.10-0.90); Monocytes Percent Auto 8.1 % (2.0-11.0); Platelet Count Result 412 K/mm3 (150-420); Red Blood Count 4.72 M/mm3 (4.70-6.10); Red Cell Distribution Width 12.4 % (11.6-14.4); White Blood Count 8.4 K/mm3 (4.8-10.8)
[2024-04-28 12:05] LABS: Alanine Aminotransferase 30 U/L (16-63); Albumin Level 3.5 g/dL (3.4-5.0); Alkaline Phosphatase 85 U/L (46-116); Anion Gap 4 mmol/L (4-12); Aspartate Amino Transferase 14 U/L (15-37); Bilirubin,Total 0.7 mg/dL (0.00-1.00); Blood Urea Nitrogen 15 mg/dL (7-18); Calcium 8.9 mg/dL (8.5-10.1); Carbon Dioxide 32 mmol/L (21-32); Chloride 107 mmol/L (98-108); Estimated Glomerular Filt Rate 58; Free T4 Free Thyroxine 1.19 ng/dL (0.76-1.46); Glucose 99 mg/dL (70-99); NT Pro B Type Natriuretic Pept 2722 pg/mL (0-450); Osmolality Calculated 296 mOsm/kg (285-295); Potassium 4.7 mmol/L (3.5-5.1); Sodium 143 mmol/L (136-145); Thyroid Stimulating Hormone 2.66 uIU/mL (0.36-3.74); Total Protein 6.4 g/dL (6.4-8.2)
[2024-04-28 12:07] LABS: CRP < 0.5 mg/dL (0.0-0.9); Free T3 2.52 pg/mL (2.18-3.98)
== END 2024-04-28 11:03 | disposition home or self-care (01) ==
LOC: CHSLAB 11:04
PROVIDERS: PCP Internal Medicine; Visit Provider Internal Medicine
DX: J18.9 Pneumonia, unspecified organism (principal); I48.91 Unspecified atrial fibrillation; I50.9 Heart failure, unspecified
CPT/HCPCS: 36415; 71046; 80053; 83880; 84439; 84443; 84481; 85025; 86140; 86738

== ENCOUNTER 2024-05-12 15:51 | Outpatient (CLI) | payer MEDICARE, SELFPAY ==
--- NOTE | 2024-05-12 15:56 | ECHO_ITS ---
Patient Info Name: Festus Clark Age: 78 years : 1945 Gender: Male Ht: 73 in Wt: 160 lbs BSA: 1.93 m2 HR: 103 bpm BP: 131 / 83 mmHg Heart Rhythm: Atrial Fibrillation Technical Quality: Fair Exam Date: 05/12/2024 3:11 PM Exam Location: Echo Lab Patient Status: Outpatient Admit Date: 05/12/2024 Staff Ordering Physician: Matthew Townsend MD Fancy Needleworker: Lalitha Phillips RDCS Attending Provider: Matthew Townsend MD Exam Type: CA echo doppler color flow Study Info Indications - Afib Complete two-dimensional, color flow and Doppler transthoracic echocardiogram is performed. Summary 1. Complete two-dimensional, color flow and Doppler transthoracic echocardiogram is performed. 2. Left ventricular chamber dimension is mildly enlarged. 3. Left ventricular systolic function is moderately globally reduced, estimated at 40-45%. 4. The left ventricular diastolic function is normal. 5. E/e' 7 is not elevated. 6. Atrial fibrillation. 7. Right ventricular chamber dimension is mildly enlarged. 8. Right ventricular systolic function is mildly reduced and with abnormal TAPSE 1.5 cm. 9. Left atrial chamber dimension is mildly enlarged. 10. Right atrial chamber dimension is mildly enlarged. 11. There is mild aortic valve sclerosis. 12. The mitral valve has mildly calcified annulus. 13. There is mild mitral valve regurgitation. 14. There is no tricuspid valve regurgitation. 15. No pulmonary hypertension, estimated pulmonary arterial systolic pressure is 34 mmHg. 16. There is trace pulmonic regurgitation. Left Ventricle E/e' 7 is not elevated. Atrial fibrillation. Left ventricular chamber dimension is mildly enlarged. Left ventricular systolic function is moderately globally reduced, estimated at 40-45%. The left ventricular diastolic function is normal. Right Ventricle Right ventricular systolic function is mildly reduced and with abnormal TAPSE 1.5 cm. Right ventricular chamber dimension is mildly enlarged. Left Atria Left atrial chamber dimension is mildly enlarged. Right Atria Right atrial chamber dimension is mildly enlarged. Aortic Valve The aortic valve is trileaflet. There is mild aortic valve sclerosis. There is no aortic valve stenosis. There is no aortic valve regurgitation. Pulmonic Valve There is trace pulmonic regurgitation. Mitral Valve The mitral valve has mildly calcified annulus. There is no mitral valve stenosis. There is mild mitral valve regurgitation. Tricuspid Valve There is no tricuspid valve regurgitation. No pulmonary hypertension, estimated pulmonary arterial systolic pressure is 34 mmHg. Pericardium/Pleural There is no pericardial effusion. Inferior Vena Cava Normal inferior vena cava with >50% collapse upon inspiration consistent with normal right atrial pressure, 5 mmHg. Aorta The aortic root size at the sinus of Valsalva is normal. Left Ventricular Outflow Tract Name Value Normal LVOT 2D LVOT Diameter 2.1 cm LVOT Doppler LVOT Peak Velocity 57 cm/s LVOT Peak Gradient 1 mmHg LVOT Mean Gradient 0 mmHg LVOT VTI 13 cm LVOT VTI/AV VTI Ratio 0.9 LVOT Stroke Volume 44 ml Pulmonic Valve Name Value Normal RVOT Doppler RVOT Peak Gradient 1 mmHg PV Doppler PV Peak Velocity 67 cm/s PV Peak Gradient 2 mmHg Mitral Valve Name Value Normal MV Doppler MV Decel [place] 505 cm/s2 MV PHT 39 ms MV Area (PHT) 5.6 cm2 4.0-5.0 MV Diastolic Function MV E Peak Velocity 69 cm/s MV A Peak Velocity 1 cm/s MV E/A 61.3 MV Decel Time 136 ms Tricuspid Valve Name Value Normal TV Regurgitation Doppler TR Peak Velocity 270 cm/s TR Peak Gradient 29 mmHg Estimated PAP/RSVP RA Pressure 5 mmHg <=5 PA Systolic Pressure 34 mmHg <36 RV Systolic Pressure 34 mmHg <36 Aortic Valve Name Value Normal AV Doppler AV Peak Velocity 70 cm/s AV Peak Gradient 2 mmHg AV Mean Gradient 1 mmHg AV VTI 15 cm AV Area (Cont Eq VTI) 3.0 cm2 >=3.0 AV Area (Cont Eq Gerber) 2.8 cm2 AV V1/V2 Ratio 0.81 AV Regurgitation 2D LVOT Area 3.4 cm2 Ventricles Name Value Normal LV Dimensions 2D/MM IVS Diastolic Thickness (2D) 1.1 cm 0.6-1.0 LVID Diastole (2D) 4.6 cm 4.2-5.8 LVIW Diastolic Thickness (2D) 1.1 cm 0.6-1.0 LVID Systole (2D) 3.3 cm 2.5-4.0 LVOT Diameter 2.1 cm LV Mass (2D Cubed) 181.35 g 88.00-224.00 LV Mass Index (2D Cubed) 94 g/m2 49-115 Relative Wall Thickness (2D) 0.47 LV Fractional Shortening/Ejection Fraction 2D/MM LV Fractional Shortening (2D) 29 % 25-43 LV EF (2D Teicholz) 56 % 52-72 LV Diastolic Volume (4C MOD) 97 ml LV EF (4C MOD) 41 % LV Diastolic Volume (2C MOD) 103 ml LV EF (2C MOD) 57 % LV Diastolic Volume (BP MOD) 101 ml 62-150 LV Diastolic Volume Index (BP MOD) 52 ml/m2 34-74 LV Systolic Volume (BP MOD) 51 ml 21-61 LV Systolic Volume Index (BP MOD) 26 ml/m2 11-31 LV EF (BP MOD) 50 % 52-72 LV Diastolic Length (4C) 8.0 cm LV Systolic Length (4C) 6.8 cm LV Stroke Volume (4C MOD) 40 ml Atria Name Value Normal LA Dimensions LA Volume (4C A-L) 62 ml LA Volume (BP A-L) 71 ml RA Dimensions RA Area (4C) 16.4 cm2 <=18.0 Report Signatures
== END 2024-05-12 15:52 | disposition home or self-care (01) ==
PROVIDERS: PCP Internal Medicine; Visit Provider Internal Medicine
DX: I48.91 Unspecified atrial fibrillation (principal); I34.0 Nonrheumatic mitral (valve) insufficiency; I35.8 Other nonrheumatic aortic valve disorders
CPT/HCPCS: 93306

== ENCOUNTER 2024-05-28 08:29 | Outpatient (CLI) | payer MEDICARE, SELFPAY ==
--- NOTE | 2024-05-28 08:39 | ECG_ITS ---
Test Date: 2024-05-28 08:52:55 Measurements Intervals [place] Rate: 75 P: 0 [place]: 0 QRS: 63 QRSD: 89 T: 42 QT: 372 QTc: 417 Interpretive Statements ATRIAL FLUTTER WITH NORMAL VENTRICULAR RESPONSE BORDERLINE R WAVE PROGRESSION, ANTERIOR LEADS BASELINE ARTIFACT- I, II, III ABNORMAL ECG No previous ECG available for comparison Electronically Signed On 05-28-2024 09:49:58 CDT by Sean Barajas D.O.
== END 2024-05-28 08:30 | disposition home or self-care (01) ==
PROVIDERS: PCP Internal Medicine; Visit Provider Internal Medicine Cardiovascular Disease
DX: I48.0 Paroxysmal atrial fibrillation (principal); R94.31 Abnormal electrocardiogram [ECG] [EKG]
CPT/HCPCS: 93005

== ENCOUNTER 2024-06-19 08:41 | Outpatient (CLI) | payer MEDICARE, SELFPAY ==
--- NOTE | ~2024-06-19 | NM_ITS ---
EXAMINATION: NM gurjit stress w perfusion DATE: 06/19/2024 10:20 INDICATION: Heart disease TECHNIQUE: Rest images were obtained following intravenous administration of 10.8 mCi Tc99m tetrofosm in (Myoview). The patient was infused intravenously with Lexiscan (Regadenoson). Then, 34.7 mCi Tc99m tetrofosmin (Myoview) was administered intravenously, and stress images were obtained. Data was tg nstructed into short axis and horizontal and vertical long axis SPECT images. Gated SPECT images were also obtained. COMPARISON: None. FINDINGS: There is no definite reversible or fixed perfusion abnormality to suggest ischemia or infar ction. There is normal left ventricular chamber size, wall motion and ejection fraction. Left ventr icular ejection fraction measures 56%. IMPRESSION: 1. Normal myocardial perfusion at rest and during stress. 2. Left ventricular ejection fraction measuring 56%. Reviewed, dictated and finalized at location A.
--- NOTE | 2024-06-19 08:50 | EST_ITS ---
Patient Info Name: Festus Clark Age: 78 years : 1945 Gender: Male Ht: 73 in Wt: 162 lbs BSA: 1.94 m2 HR: 84 bpm BP: 154 / 92 mmHg Exam Date: 06/19/2024 9:36 AM Exam Location: Echo Lab Patient Status: Outpatient Admit Date: 06/19/2024 Staff Ordering Physician: Sean Barajas DO Attending Provider: Sean Barajas DO Exercise Technologist: Nataliya Marshall RDCS Exercise Physician: Sean Barajas DO Exam Type: CA stress gurjit w NM Study Info A regadenoson stress test was performed. Summary 1. 1. Negative lexiscan stress test for ischemic ST changes by ECG criteria. 2. 2. Baseline hypertension. 3. 3. Nuclear scan to follow and will be reported separately. Please correlate with it. 4. 4. Patient informed of the above results. Protocol: Lexiscan Stress ECG Details Stage: REST Duration (min): 2 min : 5 sec HR (bpm): 81 SBP (mmHg): 154 DBP (mmHg): 92 Stage: REST Duration (min): 4 min : 25 sec HR (bpm): 86 SBP (mmHg): 154 DBP (mmHg): 92 Stage: STAGE 1 Duration (min): 1 min : 0 sec HR (bpm): 89 SBP (mmHg): 154 DBP (mmHg): 97 Stage: RECOVERY Duration (min): 1 min : 0 sec HR (bpm): 101 SBP (mmHg): 154 DBP (mmHg): 97 Stage: RECOVERY Duration (min): 2 min : 0 sec HR (bpm): 87 SBP (mmHg): 154 DBP (mmHg): 97 Stage: RECOVERY Duration (min): 3 min : 0 sec HR (bpm): 86 SBP (mmHg): 150 DBP (mmHg): 89 Stage: RECOVERY Duration (min): 3 min : 4 sec HR (bpm): 88 SBP (mmHg): 150 DBP (mmHg): 89 Rest HR: 86 bpm Peak HR: 103 bpm Rest Sys BP: 154 mmHg Peak Sys BP: 154 mmHg Max Pred HR: 141 bpm % Max Pred HR: 73 % Target HR: 120 bpm Max RPP: 15,862 bpm*mmHg Termination Reason: Completed protocol Cardiac Symptoms: Shortness of breath Total Time: 1 min : 0 sec Rest Carlson BP: 92 mmHg Peak Carlson BP: 97 mmHg Total Dose: 0.4 mg Resting ECG Atrial fibrillation, cannot r/o septal infarct, age indeterminate. Stress ECG No ST changes. Arrhythmias No other arrhythmias. Report Signatures
== END 2024-06-19 08:42 | disposition home or self-care (01) ==
PROVIDERS: PCP Internal Medicine; Visit Provider Internal Medicine Cardiovascular Disease
DX: I51.9 Heart disease, unspecified (principal); I48.0 Paroxysmal atrial fibrillation
CPT/HCPCS: 78452; 93017; A9502; J2785

== ENCOUNTER 2024-06-29 10:57 | Outpatient (CLI) | payer MEDICARE, SELFPAY ==
--- NOTE | ~2024-06-29 | XR_ITS ---
EXAM: XR lumbar spine 2-3V DATE: 06/29/2024 11:14 HISTORY: low back pain chronic no known injury . COMPARISON: 10/27/2019. FINDINGS: 5 nonrib-bearing lumbar-type vertebral bodies. Mild lumbar scoliosis. Pedicles intact. 4 m m anterolisthesis at L2-3. Vertebral body heights preserved. Multilevel disc space narrowing, severe at L2-3 and L3-4. Vacuum phenomenon at L2-3 through L4-5. Moderate facet hypertrophy and sclerosis. N o fracture or dislocation. Atherosclerotic aortic calcification without evident aneurysm IMPRESSION: Grade 1 anterolisthesis at L2-3. Multilevel severe lumbar degenerative disc disease. Mode rate lumbar facet arthropathy. Reviewed, dictated and finalized at location K. IMPRESSION: Grade 1 anterolisthesis at L2-3. Multilevel severe lumbar degenerat chemo disc disease. Moderate lumbar facet arthropathy.
== END 2024-06-29 10:58 | disposition home or self-care (01) ==
LOC: CHSIMG 10:59
PROVIDERS: PCP Internal Medicine; Visit Provider Nurse Practitioner Family
DX: M54.50 Low back pain, unspecified (principal); M43.16 Spondylolisthesis, lumbar region; M51.369 Other intervertebral disc degeneration, lumbar region without mention of lumbar back pain or lower extremity pain; M12.88 Other specific arthropathies, not elsewhere classified, other specified site
CPT/HCPCS: 72100

== ENCOUNTER 2024-07-02 13:27 | Outpatient (CLI) | payer MEDICARE, SELFPAY ==
--- NOTE | 2024-07-02 13:31 | ECG_ITS ---
Test Date: 2024-07-02 14:12:17 Measurements Intervals [place] Rate: 85 P: 0 [place]: 0 QRS: 63 QRSD: 93 T: 0 QT: 380 QTc: 454 Interpretive Statements ATRIAL FIBRILLATION NONSPECIFIC ST & T-WAVE ABNORMALITY ABNORMAL RHYTHM ECG Compared to ECG 05/28/2024 08:52:55 T-wave abnormality now present Atrial flutter no longer present Electronically Signed On 07-03-2024 10:00:09 CDT by Gatito Valdez M.D.
== END 2024-07-02 13:28 | disposition home or self-care (01) ==
PROVIDERS: PCP Internal Medicine; Visit Provider Internal Medicine Cardiovascular Disease
DX: I48.0 Paroxysmal atrial fibrillation (principal); R94.31 Abnormal electrocardiogram [ECG] [EKG]
CPT/HCPCS: 93005

== ENCOUNTER 2024-09-09 07:22 | Outpatient (CLI) | payer MEDICARE, SELFPAY ==
--- NOTE | ~2024-09-09 | CT_ITS ---
EXAMINATION: CT lumbar spine wo con DATE: 09/09/2024 07:40 INDICATION: lumbar radicular pain/NO TRAUMA . TECHNIQUE: Computed tomography (CT) of the lumbar spine was performed without intravenous contrast. A utomated exposure control and iterative reconstruction technique were employed. The dose-length produ ct was 458.79 mGy-cm. COMPARISON: 10/12/2015; x-ray lumbar spine 06/29/2024. FINDINGS: Mild scoliosis. 5 nonrib-bearing lumbar-type vertebral bodies. Multilevel disc space narrow ing, severe at L3-4. Vacuum phenomenon at L3-4 through L4-5. 4 mm anterolisthesis at L2-3. Remaining vertebral bodies are aligned. Vertebral body heights maintained. Severe facet hypertrophy and scleros is at L3-4 and L4-5. Severe central canal stenosis at L2-3 secondary to degenerative disc, facet, and ligamentum changes. Severe left neural foraminal narrowing at L4-5 secondary to degenerative disc/fa cet changes and a left subarticular/foraminal disc protrusion. No fracture. Urinary bladder wall thic kening. Extensive sigmoid diverticulosis. Atherosclerotic calcifications. Simple right renal cyst. IMPRESSION: No acute fracture or traumatic malalignment in the lumbar spine. Stable. 1 anterolisthesis at L3-4. Multilevel severe degenerative disc disease. Severe central canal narrowing at L2-3. Severe left neural foraminal narrowing at L4-5. Urinary bladder wall thickening may be secondary to chronic outlet obstruction or cystitis. Reviewed, dictated and finalized at location K.
== END 2024-09-09 07:23 | disposition home or self-care (01) ==
LOC: CHSIMG 07:24
PROVIDERS: PCP Internal Medicine; Visit Provider Nurse Practitioner Family
DX: M54.16 Radiculopathy, lumbar region (principal); M43.16 Spondylolisthesis, lumbar region; M51.369 Other intervertebral disc degeneration, lumbar region without mention of lumbar back pain or lower extremity pain; R93.41 Abnormal radiologic findings on diagnostic imaging of renal pelvis, ureter, or bladder
CPT/HCPCS: 72131

== ENCOUNTER 2024-10-13 12:41 | Inpatient (IN) | payer MEDICARE, SELFPAY ==
[2024-10-13] VITALS (15 sets, daily range): BP systolic 121–146; BP diastolic 68–98; PULSE 67–90; RESP 18–20; TEMP 36.3–37.3; O2SAT 97–99; BMI 22.1
--- NOTE | 2024-10-13 08:50 | ECG_ITS ---
Test Date: 2024-10-13 09:05:35 Measurements Intervals [place] Rate: 81 P: 0 [place]: 0 QRS: -23 QRSD: 95 T: 62 QT: 376 QTc: 439 Interpretive Statements ATRIAL FIBRILLATION NONSPECIFIC ST-T WAVE ABNORMALITY- [facility] LATERAL LEADS BASELINE ARTIFACT- I, II, III, AVL, AVF ABNORMAL ECG Compared to ECG 07/02/2024 14:12:17 No significant changes Electronically Signed On 10-13-2024 09:16:05 CDT by Sean Barajas D.O.
[2024-10-13] MEDS: SOTALOL HCL 80 MG TABLET PO ×2 (09:23→20:09)
[2024-10-13 09:26] LABS: Hematocrit 46.2 % (42.0-52.0); Hemoglobin 15.2 g/dL (14.0-18.0); Immature Granulocyte Percent A 0.3 % (0-0.5); Lymphocytes Absolute Auto 1.43 K/mm3 (0.9-3.2); Mean Corpuscular HGB Conc 32.9 g/dl (32-36); Mean Corpuscular Hemoglobin 31.7 pg (26-34); Mean Corpuscular Volume 96.5 fl (80-100); Nucleated Red Blood Cells Absolute Auto 0.000 K/mm3 (0.0-0.012); Nucleated Red Blood Cells Perc 0.0 % (0.0-0.2); Platelet Count Result 250 k/mm3 (150-375); Red Blood Count 4.79 M/mm3 (4.6-6.20); White Blood Count 7.3 K/mm3 (4.5-10.0)
[2024-10-13 09:44] LABS: Alanine Aminotransferase 32 U/L (6-50); Albumin Level 4.1 g/dL (3.5-5.1); Alkaline Phosphatase 56 U/L (38-126); Anion Gap 7 mmol/L (4-12); Aspartate Amino Transferase 41 U/L (17-59); Bilirubin,Total 0.9 mg/dL (0.2-1.3); Blood Urea Nitrogen 14 mg/dL (9-20); Calcium 9.2 mg/dL (8.4-10.2); Carbon Dioxide 29 mmol/L (22-30); Chloride 102 mmol/L (98-107); Estimated CRCL calculation 45 ml/min; Estimated Glomerular Filt Rate 56; Glucose 89 mg/dL (65-110); Magnesium 2.2 mg/dL (1.6-2.3); Potassium 4.4 mmol/L (3.4-5.0); Sodium 138 mmol/L (137-145); Total Protein 6.9 g/dL (6.3-8.2)
--- NOTE | 2024-10-13 11:25 | ECG_ITS ---
Test Date: 2024-10-13 11:39:36 Measurements Intervals [place] Rate: 78 P: 0 [place]: 0 QRS: -25 QRSD: 91 T: -3 QT: 411 QTc: 470 Interpretive Statements ATRIAL FIBRILLATION DELAYED PRECORDIAL R/S TRANSITION BORDERLINE T WAVE ABNORMALITY- INFERIOR LEADS BORDERLINE ECG Compared to ECG 10/13/2024 09:05:35 No significant changes Electronically Signed On 10-13-2024 11:45:10 CDT by Sean Barajas D.O.
--- NOTE | 2024-10-13 11:25 | PM.IMHP ---
H&P: HPI History of Present Illness Date/Time: 10/13/24 11:25 Chief Complaint: Atrial fibrillation for Sotalol loading Narrative: 79 yr old man who is my regular cardiology patient and a patient of Dr. Townsend presents for direct admission for Sotalol loading. He has a history of systolic dysfunction, PAF and flutter, dyslipidemia (intolerant of Simvastatin and Zetia due to myalgia), is at bedside. He had flu in April 2024 and since then had low energy. He has fatigue. He can walk a mile but would feel exhausted afterwards. Denies chest pain, orthopnea, PND, edema, dizziness, palpitations. Cardiovascular Procedures Echo/MUGA:: 05/12/24 Echo: EF 40-45%, mild LVE, mild RVE/hypokinesis, mild biatrial enlargement, mild MAC/MR, trace PI. Electrophysiology:: 06/04/24 EKG: Atrial flutter at 75 bpm, BRWP, QTc 417 ms. 04/28/24 EKG: Atrial fibrillation at 173 bpm, cannot r/o septal infarct, age indeterminate. Stress Tests:: 06/19/24 Lexiscan myoview: Negative. 01/20/24 Carotid duplex<50% ICA stenosis bilaterally. Review of Systems Review of Systems: All systems reviewed & are unremarkable except as noted in HPI and below Constitutional: Constitutional: Reports as per HPI, Denies chills, Reports fatigue and Denies fever(s) Cardiovascular: Cardiovascular: Reports as per HPI, Denies chest pain and Denies irregular heart rhythm Respiratory: Respiratory: Reports as per HPI and Denies dyspnea Gastrointestinal: Gastrointestinal: Reports as per HPI and Denies abdominal pain Genitourinary: Genitourinary: Reports as per HPI and Denies dysuria Musculoskeletal: Musculoskeletal: Reports as per HPI Neurologic: Reports as per HPI, Denies dizziness and Denies syncope [facility] Past Medical History Medical History (Updated 05/21/24 @ 05:36 by Sean Barajas DO) History of gastric ulcer Hyperlipidemia Emphysema, unspecified Surgical History Surgical History H/O inguinal hernia repair 02/03/20 Laparoscopic right inguinal hernia repair with Progrip mesh, da Nahomi assisted History of eye surgery History of repair of rotator cuff History of hernia repair Family History Family History (Updated 10/13/24 @ 09:36 by Renay Vizcaino RN) Father Hernia Abdominal aneurysm Hypertension Mother Family history of Alzheimer's disease Heart attack Social History Social History Smoking packs per day: 1 Smoking cigarettes per day: 20.0 Years smoked: 25 Smoking pack-years: 25.00 Smoking status: Former smoker Smoking end date: 08/18/89 Alcohol intake: current Drinks per week: 2 Substance use: never Lack of Transportation: No Lack of Food: Never True Current Housing: I Have Housing Concerned About Future Housing: No Difficulty Paying Gas/Electric Bills: No Difficulty Paying for Meds: No Currently Unemployed: No Education: Bachelor's Degree Difficulty w/ Childcare or Family Care: No Living arrangements: with family Occupation/Education: retired Spiritual care concerns: No Meds Home Medications and Allergies Home Medications ?Medication ?Instructions ?Recorded ?Confirmed ?Type acetaminophen 325 mg capsule 325 mg PO Q6H PRN Pain 01/01/20 10/13/24 History (Tylenol) fluticasone propionate 50 1 spray intranasal DAILY PRN 01/27/20 10/13/24 History mcg/actuation nasal Congestion spray,suspension multivitamin (Daily Multiple 1 tablet PO DAILY 01/27/20 10/13/24 History tablet) apixaban 5 mg tablet (Eliquis) 5 mg PO BID #60 tabs 05/21/24 10/13/24 Rx metoprolol succinate 25 mg 25 mg PO HS 10/13/24 10/13/24 History tablet,extended release 24 hr (Toprol XL) Allergies Allergy/AdvReac Type Severity Reaction Status Date / Time ezetimibe Allergy Unknown Cramping Verified 10/13/24 09:30 of the Muscles simvastatin Allergy Unknown Cramping Verified 10/13/24 09:30 of the Muscles Vital Signs Vital Signs - 24 hr 10/13/24 09:23 10/13/24 09:28 10/13/24 10:00 Temperature 97.6 F Pulse Rate 87 89 87 Respiratory Rate 20 Blood Pressure 142/78 H Pulse Oximetry 99 Oxygen Delivery 10/13/24 10:20 Temperature Pulse Rate Respiratory Rate Blood Pressure Pulse Oximetry Oxygen Delivery Room Air Exam Const: General: cooperative, healthy appearing and comfortable Resp: Auscultation: clear to auscultation bilaterally, no crackles, no rales, no rhonchi and no wheezes Cardio: Rate: regular rate Rhythm: abnormal rhythm Heart sounds: no murmurs Peripheral pulses: dorsalis pedis present GI: GI Palp: No abdominal tenderness and Yes Soft to palpation Neuro: General: oriented to person, oriented to place and oriented to time Extrem: Right lower extremity: no edema Left lower extremity: no edema H&P: Results Labs Labs: Short CBC 10/13/24 Range/Units 09:10 WBC 7.3 (4.5-10.0) K/mm3 Hgb 15.2 (14.0-18.0) g/dL Hct 46.2 (42.0-52.0) % Plt Count 250 (150-375) k/mm3 BMP 10/13/24 09:10 Sodium 138 Potassium 4.4 Chloride 102 Carbon Dioxide 29 BUN 14 Creatinine 1.25 Glucose 89 Calcium 9.2 Liver Function 10/13/24 Range/Units 09:10 Total Bilirubin 0.9 (0.2-1.3) mg/dL AST 41 (17-59) U/L ALT 32 (6-50) U/L Alkaline Phosphatase 56 (38-126) U/L Albumin 4.1 (3.5-5.1) g/dL Assessment and Plan Assessment and plan (1) PAF (paroxysmal atrial fibrillation): Code(s): I48.0 - Paroxysmal atrial fibrillation Status: Acute Assessment and Plan: In atrial fibrillation. Probably due to flu or age. [id number] 3. On Eliquis. Discuss results of EKG. Intolerant of Amiodarone 200 mg daily due to fatigue and unable to sleep. Start Sotalol loading as per protocol, and expect a 2 night stay. Check EKG 1-2 hours after each Sotalol dose to check QT interval. Stop Metoprolol. (2) Systolic dysfunction: Code(s): I51.9 - Heart disease, unspecified Status: Acute Assessment and Plan: Mild.
[2024-10-13] MEDS: APIXABAN 5 MG TABLET PO (20:10)
--- NOTE | 2024-10-13 22:10 | ECG_ITS ---
Test Date: 2024-10-13 22:18:20 Measurements Intervals [place] Rate: 66 P: 0 [place]: 0 QRS: -17 QRSD: 89 T: 0 QT: 407 QTc: 428 Interpretive Statements ATRIAL FIBRILLATION DELAYED PRECORDIAL R/S TRANSITION NONSPECIFIC T-WAVE ABNORMALITY- INFERIOR LEADS BASELINE ARTIFACT- I, II, III, AVR, AVL, AVF, V1 ABNORMAL ECG Compared to ECG 10/13/2024 11:39:36 NO SIGNIFICANT CHANGE Electronically Signed On 10-14-2024 06:44:51 CDT by Sean Barajas D.O.
[2024-10-14] VITALS (18 sets, daily range): BP systolic 113–137; BP diastolic 63–84; PULSE 66–82; RESP 16–20; TEMP 36.4–37.3; O2SAT 94–100
[2024-10-14 05:11] LABS: Anion Gap 3 mmol/L (4-12); Blood Urea Nitrogen 16 mg/dL (9-20); Calcium 8.8 mg/dL (8.4-10.2); Carbon Dioxide 29 mmol/L (22-30); Chloride 105 mmol/L (98-107); Estimated CRCL calculation 46 ml/min; Estimated Glomerular Filt Rate 56; Glucose 86 mg/dL (65-110); Magnesium 2.1 mg/dL (1.6-2.3); Potassium 4.0 mmol/L (3.4-5.0); Sodium 137 mmol/L (137-145)
--- NOTE | 2024-10-14 07:54 | PM.PNCARD ---
Progress Note: A&P Assessment and Plan (1) PAF (paroxysmal atrial fibrillation): Code(s): I48.0 - Paroxysmal atrial fibrillation Status: Acute Assessment and Plan: In atrial fibrillation. Probably due to flu or age. [id number] 3. On Eliquis. Discuss results of EKG. Intolerant of Amiodarone 200 mg daily due to fatigue and unable to sleep. Start 10/13/24 Sotalol loading as per protocol, and expect a 2 night stay. Check EKG 1-2 hours after each Sotalol dose to check QT interval. If still in atrial fibrillation by tomorrow morning, plan for EVA/Cardioversion without anesthesia. He is agreeable to this. (2) Systolic dysfunction: Code(s): I51.9 - Heart disease, unspecified Status: Acute Assessment and Plan: Mild. Subjective Date/time seen: 10/14/24 07:54 Interval history: Denies chest pain or sob. Exam Const: General: cooperative, healthy appearing and comfortable Orientation/consciousness: oriented to person, oriented to place and oriented to time Resp: Auscultation: clear to auscultation bilaterally, no crackles, no rales, no rhonchi and no wheezes Cardio: Rate: regular rate Rhythm: abnormal rhythm Heart sounds: no murmurs Peripheral pulses: dorsalis pedis present Neuro: General: oriented to person, oriented to place and oriented to time Extrem: Right lower extremity: no edema Left lower extremity: no edema Objective Data Vital Signs Vital Signs: Vital Signs - 24 hr 10/13/24 09:23 10/13/24 09:28 10/13/24 10:00 Temperature 97.6 F Pulse Rate 87 89 87 Respiratory Rate 20 Blood Pressure 142/78 H Pulse Oximetry 99 Oxygen Delivery 10/13/24 10:20 10/13/24 11:53 10/13/24 12:00 Temperature 97.4 F L Pulse Rate 74 82 Respiratory Rate 18 Blood Pressure 138/94 H Pulse Oximetry 99 Oxygen Delivery Room Air 10/13/24 12:00 10/13/24 14:00 10/13/24 15:57 Temperature 97.7 F Pulse Rate 90 71 Respiratory Rate 20 Blood Pressure 130/72 Pulse Oximetry 97 Oxygen Delivery Room Air 10/13/24 16:00 10/13/24 16:00 10/13/24 18:00 Temperature Pulse Rate 70 68 Respiratory Rate Blood Pressure Pulse Oximetry Oxygen Delivery Room Air 10/13/24 20:00 10/13/24 20:00 10/13/24 20:09 Temperature Pulse Rate 75 67 Respiratory Rate Blood Pressure Pulse Oximetry Oxygen Delivery Room Air 10/13/24 20:42 10/13/24 22:00 10/13/24 23:13 Temperature 99.1 F 98.6 F Pulse Rate 69 78 71 Respiratory Rate 20 20 Blood Pressure 146/98 H 121/68 Pulse Oximetry 98 98 Oxygen Delivery 10/13/24 23:21 10/14/24 00:00 10/14/24 02:00 Temperature Pulse Rate 73 66 Respiratory Rate Blood Pressure Pulse Oximetry 98 Oxygen Delivery Room Air 10/14/24 04:00 10/14/24 04:00 10/14/24 04:59 Temperature 97.8 F Pulse Rate 72 67 Respiratory Rate 20 Blood Pressure 113/63 Pulse Oximetry 94 Oxygen Delivery Room Air 10/14/24 06:00 Temperature Pulse Rate 72 Respiratory Rate Blood Pressure Pulse Oximetry Oxygen Delivery Intake/Output Intake/Output: Intake & Output 10/11/24 10/12/24 10/13/24 10/14/24 23:59 23:59 23:59 23:59 Intake Total 730 550 Balance 730 550 Meds/Results Medications: Active Medications Generic Name Dose Route Start Last Admin Trade Name Freq PRN Reason Stop Dose Admin Apixaban 5 mg 10/13/24 09:00 10/13/24 20:10 Apixaban 5 Mg Tablet PO 5 mg Q12HR RONALD Administration Fluticasone Propionate 1 spray 10/13/24 09:52 Fluticasone Propionate 0.05% Na Spr 16 Gm Btl (*Bkc) NASAL DAILY PRN Congestion Multivitamins Therapeutic 1 tablet 10/13/24 09:00 10/13/24 10:11 Multivitamins Therapeutic Tab (*Bkc) PO Not Given DAILY RONALD Sotalol HCl 80 mg 10/13/24 09:00 10/13/24 20:09 Sotalol Hcl 80 Mg Tablet PO 80 mg Q12HR RONALD Administration Labs Labs: Laboratory Results - last 24 hr 10/13/24 10/14/24 09:10 04:19 WBC 7.3 RBC 4.79 Hgb 15.2 Hct 46.2 MCV 96.5 MCH 31.7 MCHC 32.9 RDW 12.9 Plt Count 250 MPV 9.0 Immature Gran % (Auto) 0.3 Neut % (Auto) 69.1 Lymph % (Auto) 19.7 [place] % (Auto) 8.8 H Eos % (Auto) 1.5 Baso % (Auto) 0.6 Lymph # (Auto) 1.43 [place] # (Auto) 0.6 Eos # (Auto) 0.1 Baso # (Auto) 0.0 Abs Immat Gran (auto) 0.02 Absolute Neuts (auto) 5.0 Absolute Nucleated RBC 0.000 Nucleated RBC % 0.0 Sodium 138 137 Potassium 4.4 4.0 Chloride 102 105 Carbon Dioxide 29 29 Anion Gap 7 3 L BUN 14 16 Creatinine 1.25 1.24 Estim Creat Clear Calc 45 46 Estimated GFR 56 L 56 L Glucose 89 86 Calcium 9.2 8.8 Magnesium 2.2 2.1 Total Bilirubin 0.9 AST 41 ALT 32 Alkaline Phosphatase 56 Total Protein 6.9 Albumin 4.1
[2024-10-14] MEDS: APIXABAN 5 MG TABLET PO ×2 (09:10→20:14)
[2024-10-14] MEDS: SOTALOL HCL 80 MG TABLET PO ×2 (09:10→20:14)
[2024-10-14] MEDS: MULTIVITAMINS THERAPEUTIC TAB (*BKC) 1 TABLET PO (09:11)
--- NOTE | 2024-10-14 11:00 | ECG_ITS ---
Test Date: 2024-10-14 11:00:31 Measurements Intervals [place] Rate: 73 P: 0 [place]: 0 QRS: -25 QRSD: 94 T: -15 QT: 368 QTc: 406 Interpretive Statements ATRIAL FIBRILLATION DELAYED PRECORDIAL R/S TRANSITION BORDERLINE ST-T WAVE ABNORMALITY- INFERIOR LEADS BASELINE ARTIFACT- I, II, AVR ABNORMAL ECG Compared to ECG 10/13/2024 22:18:20 NO SIGNIFICANT CHANGE Electronically Signed On 10-14-2024 11:18:16 CDT by Sean Barajas D.O.
[2024-10-14] MEDS: SODIUM CHLORIDE 0.9% IV 1,000 ML 30 ML IV CONT (20:16)
--- NOTE | 2024-10-14 22:23 | ECG_ITS ---
Test Date: 2024-10-14 22:23:52 Measurements Intervals [place] Rate: 75 P: 0 [place]: 0 QRS: -20 QRSD: 93 T: 1 QT: 372 QTc: 416 Interpretive Statements ATRIAL FIBRILLATION DELAYED PRECORDIAL R/S TRANSITION NONSPECIFIC T-WAVE ABNORMALITY- INFERIOR LEADS BASELINE ARTIFACT- I, III, AVR, AVL, AVF ABNORMAL ECG Compared to ECG 10/14/2024 11:00:31 NO SIGNIFICANT CHANGE Electronically Signed On 10-15-2024 06:18:14 CDT by Sean Barajas D.O.
[2024-10-15] VITALS (18 sets, daily range): BP systolic 128–162; BP diastolic 73–106; PULSE 65–98; RESP 12–18; TEMP 36.6; O2SAT 92–100
[2024-10-15 04:32] LABS: Anion Gap 4 mmol/L (4-12); Blood Urea Nitrogen 18 mg/dL (9-20); Calcium 8.5 mg/dL (8.4-10.2); Carbon Dioxide 28 mmol/L (22-30); Chloride 104 mmol/L (98-107); Estimated CRCL calculation 43 ml/min; Estimated Glomerular Filt Rate 53; Glucose 82 mg/dL (65-110); Magnesium 2.1 mg/dL (1.6-2.3); Potassium 3.8 mmol/L (3.4-5.0); Sodium 136 mmol/L (137-145)
--- NOTE | 2024-10-15 08:00 | ECHO_ITS ---
Patient Info Name: Festus Clark Age: 79 years : 1945 Gender: Male Ht: 73 in Wt: 167 lbs BSA: 1.97 m2 Heart Rhythm: Atrial Fibrillation Technical Quality: Good Exam Date: 10/15/2024 11:12 AM Patient Status: I Admit Date: 10/13/2024 Exam Type: CA echo transesophageal Complete two-dimensional, color flow and Doppler transesophageal study is performed. Hand Engraver: Criss Dozier Attending Provider: Sean Barajas DO Summary 1. Left ventricular chamber dimension is mildly enlarged. 2. Left ventricular systolic function is moderately globally reduced with an ejection fraction of 35-40% by visual estimation. 3. The left ventricular diastolic function is indeterminate as it was not assessed. 4. Right ventricular chamber dimension is mildly enlarged. 5. Right ventricular systolic function is at at least moderately reduced. 6. Left atrial chamber dimension is moderately enlarged. 7. There is mild mitral valve regurgitation. 8. There is trace tricuspid valve regurgitation. Procedure Details Risks/benefits/alternative to EVA discuss with patient and he gave informed consent. He was monitored electrocardiographically, vitals and pulse ox. He was in atrial fibrillation at 80 bpm, BP 150/60 mmHg, pulse ox 95%. Cetcaine spray x 1 given to posterior oropharynx. Versed 2 mg and Fentanyl 50 mcg IV given for conscious sedation. EVA probe advanced into esophagus without incident. Multiple images obtained. EVA probe withdrawn and no blood on EVA probe tip. Patient tolerated procedure well with no complications. Left Ventricle Left ventricular chamber dimension is mildly enlarged. Left ventricular systolic function is moderately globally reduced with an ejection fraction of 35-40% by visual estimation. The left ventricular diastolic function is indeterminate as it was not assessed. Right Ventricle Right ventricular chamber dimension is mildly enlarged. Right ventricular systolic function is at at least moderately reduced. Left Atria Left atrial chamber dimension is moderately enlarged. Right Atria Right atrial chamber dimension is normal. Atrial Appendage There is no thrombus visualized in the left atrial appendage. Aortic Valve The aortic valve is trileaflet. There is no aortic valve stenosis. There is no aortic valve regurgitation. Pulmonic Valve There is no pulmonic regurgitation. Mitral Valve There is no mitral valve stenosis. There is mild mitral valve regurgitation. Tricuspid Valve There is trace tricuspid valve regurgitation. RVSP is not measured. Pericardium/Pleural There is no pericardial effusion. Inferior Vena Cava Inferior vena cava is not well visualized. Aorta The aortic root size at the sinus of Valsalva is normal. Report Signatures
[2024-10-15] MEDS: SOTALOL HCL 80 MG TABLET PO (09:13)
[2024-10-15] MEDS: MULTIVITAMINS THERAPEUTIC TAB (*BKC) 1 TABLET PO (09:13)
[2024-10-15] MEDS: APIXABAN 5 MG TABLET PO (09:13)
--- NOTE | 2024-10-15 10:15 | ECG_ITS ---
Test Date: 2024-10-15 10:15:10 Measurements Intervals [place] Rate: 89 P: 0 [place]: 0 QRS: -20 QRSD: 93 T: -29 QT: 380 QTc: 463 Interpretive Statements ATRIAL FIBRILLATION NONSPECIFIC T-WAVE ABNORMALITY- DIFFUSE LEADS BASELINE ARTIFACT- I, II ,AVR, AVL ABNORMAL ECG Compared to ECG 10/14/2024 22:23:52 NO SIGNIFICANT CHANGE Electronically Signed On 10-15-2024 10:26:44 CDT by Sean Barajas D.O.
--- NOTE | 2024-10-15 11:30 | ECG_ITS ---
Test Date: 2024-10-15 14:13:15 Measurements Intervals [place] Rate: 72 P: 147 MA: 123 QRS: -24 QRSD: 98 T: 16 QT: 407 QTc: 446 Interpretive Statements SINUS RHYTHM WITH SINUS ARRHYTHMIA INCOMPLETE RIGHT BUNDLE BRANCH BLOCK BORDERLINE T WAVE ABNORMALITY- INFERIOR LEADS BASELINE ARTIFACT- AVR, AVL, AVF, V2, V4-V6 BORDERLINE ECG Compared to ECG 10/15/2024 10:15:10 ATRIAL FIBRILLATION NO LONGER PRESENT Electronically Signed On 10-15-2024 12:09:47 CDT by Sean Barajas D.O.
[2024-10-15] MEDS: fentaNYL CITRATE INJ (*CRX) 100 MCG/2 ML VIAL IV PUSH (11:39)
[2024-10-15] MEDS: MIDAZOLAM HCL (*CRX) 2 MG/2 ML VIAL IV PUSH (11:39)
--- NOTE | 2024-10-15 12:19 | WPDCARDVER ---
Cardioversion Cardioversion Date of procedure: 10/15/24 Procedure: DC Cardioversion Pre-op diagnosis: atrial fibrillation Indications: Symptomatic atrial fibrillation Description of procedure: Risks/benefits/alternative to DC cardioversion discuss with patient and he gave informed consent. EVA was just done demonstrating no thrombus in left atrial appendage or left atrium. Patient is monitored electrocardiographically, vitals, pulse ox. He was in atrial fibrillation at 80 bpm, BP 160/90 mmHg, pulse ox 92 on 3 L/M NC. He is under moderate sedation. DC cardioversion with 200 J synchronized biphasic energy x1 with succuessful jewish of sinus rhythm. He tolerated procedure well with no complications. Sedation: Versed 2 mg and Fentanyl 50 mcg IV Conclusion: 1. Successful DC cardioversion from atrial fibrillation to sinus rhythm. [facility] Billing for Cardioversion: Cardioversion
--- NOTE | 2024-10-15 15:15 | PM.DS ---
DS: Admitting Diagnosis Discharge Date 10/15/24 Admitting Diagnosis Atrial fibrillation for Sotalol loading DS: Discharge Diagnosis Discharge Diagnosis Plan S/P Sotalol loading for atrial fibrillation DS: Summary Hospital Course Reason for hospitalization: Sotalol loading for atrial fibrillation Hospital Course: 79 yr old man directed admitted for Sotalol loading for atrial fibrillation. He developed atrial fibrillation earlier this year with the influenza infection. 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 Here for Sotalol loading for 2 nights and on final morning he was still in atrial fibrillation. Therefore, he had EVA/DC cardioversion which showed no left atrial appendage thrombus and had cardioversion that was successful. No complications. Patient had Metoprolol discontinued since starting Sotalol. He will go home on Sotalol 80 mg BID and Eliquis 5 mg BID. F/U with me in 1-2 weeks. Time spent discussing smoking cessation with patient: 3 to 10 minutes Status at Discharge Functional status at discharge: independent ambulation Overall status at discharge: patient is back to baseline Time Spent with Patient Time attestation: Total time spent providing and/or coordinating discharge services: Time spent: Less than 30 minutes Exam Const: General: cooperative, healthy appearing and comfortable Orientation/consciousness: oriented to person, oriented to place and oriented to time Resp: Auscultation: clear to auscultation bilaterally, no crackles, no rales, no rhonchi and no wheezes Cardio: Rate: regular rate Rhythm: regular rhythm Heart sounds: no murmurs Peripheral pulses: dorsalis pedis present Neuro: General: oriented to person, oriented to place and oriented to time Extrem: Right lower extremity: no edema Left lower extremity: no edema DS: Data Data Completed and Pending Labs on day of discharge: Labs from last 24 hours 10/15/24 03:54 Sodium 136 L Potassium 3.8 Chloride 104 Carbon Dioxide 28 Anion Gap 4 BUN 18 Creatinine 1.31 H Estim Creat Clear Calc 43 Estimated GFR 53 L Glucose 82 Calcium 8.5 Magnesium 2.1 Discharge Plan Discharge Attending physician on discharge: Sean Barajas Discharging Clinician: Sean Barajas Patient Disposition: Home Activity: as tolerated Diet: regular Patient Instructions: Antibiotic Form, Sotalol (By mouth), Apixaban (By mouth) Patient Language: [place] Stand Alone Forms: General Discharge Information Follow-up/Referrals: Sean Barajas DO [Physician, Cardiology] Referral Note: F/U in 1-2 weeks Discharge Medications: New sotalol 80 mg Tablet 80 mg PO Q12HR Qty: 60 5RF Continued Eliquis 5 mg tablet 5 mg PO BID Qty: 60 5RF multivitamin [Daily Multiple] Tablet 1 tablet PO DAILY fluticasone propionate 50 mcg/actuation [place],Suspension 1 spray INTRANASAL DAILY PRN (Reason: Congestion) Discontinued acetaminophen [Tylenol] 325 mg capsule 325 mg PO Q6H PRN (Reason: Pain) metoprolol succinate [Toprol XL] 25 mg tablet extended release 24 hr 25 mg PO HS Date of admission: 10/13/24 08:41 Primary Care Provider: Matthew Townsend Admitting Provider: Sean Barajas Attending physician on admission: Sean Barajas Condition: Stable Quality VTE Prophylaxis VTE prophylaxis: pharmacologic ordered
== END 2024-10-15 15:34 | disposition home or self-care (01) | DRG 310 ==
PROVIDERS: Admitting Provider Internal Medicine Cardiovascular Disease; PCP Internal Medicine; Visit Provider Internal Medicine Cardiovascular Disease
PROC: B24BZZ4 Ultrasonography of Heart with Aorta, Transesophageal (ICD-10-PCS; CPT 93312; principal; 2024-10-15 11:30)
PROC: 5A2204Z Restoration of Cardiac Rhythm, Single (ICD-10-PCS; 2024-10-15 11:30)
DX: I48.0 Paroxysmal atrial fibrillation (principal); E78.5 Hyperlipidemia, unspecified; I51.9 Heart disease, unspecified; J43.9 Emphysema, unspecified; F10.90 Alcohol use, unspecified, uncomplicated; Z51.81 Encounter for therapeutic drug level monitoring; Z87.09 Personal history of other diseases of the respiratory system; Z87.19 Personal history of other diseases of the digestive system; Z87.891 Personal history of nicotine dependence
CPT/HCPCS: 36415; 80048; 80053; 83735; 85025; 92960; 93005; 93312; 93320; 93325; A9270; J2250; J3010; J7030; J7040

== ENCOUNTER 2024-10-22 14:33 | Outpatient (CLI) | payer MEDICARE, SELFPAY ==
--- NOTE | 2024-10-22 14:38 | ECG_ITS ---
Test Date: 2024-10-22 14:45:26 Measurements Intervals [place] Rate: 79 P: 0 GA: 0 QRS: 44 QRSD: 91 T: 32 QT: 405 QTc: 465 Interpretive Statements ATRIAL FLUTTER/TACHYCARDIA MODERATE ST DEPRESSION [0.05+ mV ST DEPRESSION] Compared to ECG 10/15/2024 14:13:15 ST (T wave) deviation now present Sinus rhythm no longer present Sinus arrhythmia no longer present Incomplete right bundle-branch block no longer present Electronically Signed On 10-23-2024 12:12:19 CDT by Vargas Powell M.D.
== END 2024-10-22 14:34 | disposition home or self-care (01) ==
LOC: CHSCARD 14:35
PROVIDERS: PCP Internal Medicine; Visit Provider Internal Medicine Cardiovascular Disease
DX: I48.0 Paroxysmal atrial fibrillation (principal); I48.92 Unspecified atrial flutter; I47.19 Other supraventricular tachycardia
CPT/HCPCS: 93005

== ENCOUNTER 2025-01-19 07:21 | Outpatient (CLI) | payer MEDICARE, SELFPAY ==
--- NOTE | 2025-01-19 07:25 | ECG_ITS ---
Test Date: 2025-01-19 07:39:07 Measurements Intervals [place] Rate: 94 P: 0 CA: 0 QRS: 58 QRSD: 91 T: 88 QT: 343 QTc: 431 Interpretive Statements ATRIAL FLUTTER/TACHYCARDIA DELAYED PRECORDIAL R/S TRANSITION ABNORMAL ECG Compared to ECG 10/22/2024 14:45:26 NO SIGNIFICANT CHANGE Electronically Signed On 01-19-2025 07:56:59 SHEET METAL CONTRACTOR by Sean Barajas D.O.
== END 2025-01-19 07:22 | disposition home or self-care (01) ==
LOC: CHSCARD 07:22
PROVIDERS: PCP Internal Medicine; Visit Provider Internal Medicine Cardiovascular Disease
DX: I48.0 Paroxysmal atrial fibrillation (principal); I48.92 Unspecified atrial flutter; R00.0 Tachycardia, unspecified; R94.31 Abnormal electrocardiogram [ECG] [EKG]
CPT/HCPCS: 93005

== ENCOUNTER 2025-02-11 06:35 | Emergency (ER) | payer MEDICARE, SELFPAY ==
[2025-02-11] VITALS (20 sets, daily range): BP systolic 112–158; BP diastolic 75–144; PULSE 99–124; RESP 13–25; TEMP 36.9; O2SAT 92–100
--- NOTE | ~2025-02-11 | XR_ITS ---
XR chest 1V portable 02/11/2025 06:51 Indication: Cough. History of atrial fibrillation. Procedure: AP portable chest Comparison: 04/28/2024 Findings: Heart size normal. No focal air space disease, pulmonary edema, pleural effusion or suspected pneumothorax. Nodular opacity right lung base may represent a prominent nipple shadow versus parenchymal nodule. Recommend repeat PA and lateral views of the chest with nipple markers. Impression: 1: Nodular opacity right lung base. Correlation with PA and lateral views of the chest with nipple markers recommended. Reviewed, dictated and finalized at location O. F INFORMATION OFFICER Impression: 1: Nodular opacity right lung base. Correlation with PA and lateral views of th e chest with nipple markers recommended.
--- NOTE | 2025-02-11 06:36 | ECG_ITS ---
Test Date: 2025-02-11 06:45:07 Measurements Intervals [place] Rate: 110 P: 0 [place]: 0 QRS: -7 QRSD: 105 T: 88 QT: 337 QTc: 458 Interpretive Statements ATRIAL FLUTTER/TACHYCARDIA WITH RAPID VENTRICULAR RESPONSE BORDERLINE R WAVE PROGRESSION, ANTERIOR LEADS BORDERLINE T WAVE ABNORMALITY- HIGH LATERAL LEADS ABNORMAL ECG Compared to ECG 01/19/2025 07:39:07 HEART RATE HAS INCREASED Electronically Signed On 02-11-2025 09:16:29 PLANER SETUP OPERATOR by Sean Barajas D.O.
--- NOTE | 2025-02-11 06:45 | PC.NURSE ---
EKG IN PROGRESS
--- NOTE | 2025-02-11 06:49 | PC.NURSE ---
EKG, CXR, COVID SWAB ALL COMPLETED
--- NOTE | 2025-02-11 07:01 | ED.GENADULT ---
HPI - General Adult General Chief complaint: Upper Respiratory Infection Stated complaint: sob Time Seen by Provider: 02/11/25 06:55 History of Present Illness HPI narrative: Rafita is a 79M with a PMH of pneumonia, Afib, CHF presented to the ED not feeling well. For the past couple days he has had worsening cough, fatigue and dyspnea. No fevers or vomiting or diarrhea. His was recently sick. Related Data Home Medications ?Medication ?Instructions ?Recorded ?Confirmed ?Last Taken ?Type fluticasone propionate 50 1 spray intranasal DAILY PRN 01/27/20 01/25/25 10/12/24 History mcg/actuation nasal Congestion spray,suspension multivitamin (Daily Multiple 1 tablet PO DAILY 01/27/20 01/25/25 10/13/24 History tablet) Allergies Allergy/AdvReac Type Severity Reaction Status Date / Time ezetimibe Allergy Unknown Cramping Verified 10/13/24 09:30 of the Muscles simvastatin Allergy Unknown Cramping Verified 10/13/24 09:30 of the Muscles Review of Systems Review of Systems: All systems reviewed & are unremarkable except as noted in HPI and below PMFSH Past Medical History Medical History History of gastric ulcer Hyperlipidemia Emphysema, unspecified Surgical History Surgical History H/O inguinal hernia repair 02/03/20 Laparoscopic right inguinal hernia repair with Progrip mesh, da Nahomi assisted History of eye surgery History of repair of rotator cuff History of hernia repair Family History Family History Father Hernia Abdominal aneurysm Hypertension Mother Family history of Alzheimer's disease Heart attack Social History Social History Smoking packs per day: 1 Smoking cigarettes per day: 20.0 Years smoked: 25 Smoking pack-years: 25.00 Smoking status: Former smoker Smoking end date: 08/18/89 Alcohol intake: current Drinks per week: 2 Substance use: never Lack of Transportation: No Lack of Food: Never True Current Housing: I Have Housing Concerned About Future Housing: No Difficulty Paying Gas/Electric Bills: No Difficulty Paying for Meds: No Currently Unemployed: No Education: Bachelor's Degree Difficulty w/ Childcare or Family Care: No Living arrangements: with family Occupation/Education: retired Spiritual care concerns: No Exam Const: General: cooperative, healthy appearing, comfortable, no acute distress, well developed, alert, awake and Physically active Orientation/consciousness: oriented to person, oriented to place and oriented to time HENMT: Head: normal to inspection, normocephalic and atraumatic Ears: hearing grossly normal bilaterally and external ears normal Face/Nose/Sinus: Normal external nose present Eyes: General: appearance normal, both eyes and all related structures Periorbital: periorbital findings normal Sclera: sclerae normal Pupils: Equal, round and reactive pupils present Neck: Neck: normal visual inspection Chest: Chest palpation & inspection: normal inspection of the chest Resp: Effort & Inspection: normal respiratory effort, able to speak in complete sentences and no respiratory distress Other: Bibasilarcrackles Cardio: Jugular venous distension: no JVD Rate: regular rate Rhythm: regular rhythm GI: Inspection: normal to inspection GI Palp: Yes Soft to palpation Auscultation: normal bowel sounds Skin: General skin exam: normal color and no rashes or lesions noted Neuro: General: oriented to person, oriented to place and oriented to time Cranial nerves: Yes Equal, round and reactive pupils present Extrem: General: normal to inspection Course Course Emergency Course: EKG showed Afib with a rate of 110, QTc of 402, and no ST elevation Labs showed no leukocytosis or anemia. Chemistries showed a very elevated BNP. +Covid test. Ordered fluids, and metoprolol as HR was in the 120s resting contributing to CHF exacerbation. Vital Signs Vital signs: Vital Signs Temperature 98.4 F 02/11/25 06:39 Pulse Rate 114 H 02/11/25 06:39 Respiratory Rate 18 02/11/25 06:39 Blood Pressure 142/96 H 02/11/25 06:39 Pulse Oximetry 100 02/11/25 06:39 Oxygen Delivery Room Air 02/11/25 06:39 Temperature 98.4 F 02/11/25 06:39 Pulse Rate 123 H 02/11/25 07:52 Respiratory Rate 18 02/11/25 06:39 Blood Pressure 142/96 H 02/11/25 06:39 Pulse Oximetry 100 02/11/25 06:39 Oxygen Delivery Room Air 02/11/25 06:39 MDM Differential Diagnosis Differential Diagnosis: COVID vs CHF vs Afib vs other virus Lab Data 02/11/25 07:08 02/11/25 07:08 Labs: Lab Results 02/11/25 02/11/25 Range/Units 06:41 07:08 WBC 5.9 (4.8-10.8) K/mm3 RBC 4.51 L (4.70-6.10) M/mm3 Hgb 13.9 (12.4-15.3) g/dL Hct 42.5 (37.0-46.0) % MCV 94.2 (78.0-102.0) fL MCH 30.8 (27.0-31.0) pg MCHC 32.7 (32-36) g/dL RDW 12.8 (11.6-14.4) % Plt Count 224 (150-420) K/mm3 MPV 8.6 L (8.7-11.0) fl Immature Gran % (Auto) 0.2 H (0.0-0.0) % Neut % (Auto) 66.7 (50.0-70.0) % Lymph % (Auto) 16.9 L (18.0-42.0) % [place] % (Auto) 13.2 H (2.0-11.0) % Eos % (Auto) 2.7 (1.0-6.0) % Baso % (Auto) 0.3 (0.0-1.0) % Lymph # (Auto) 0.99 L (1.10-4.50) K/mm3 [place] # (Auto) 0.77 (0.10-0.90) K/mm3 Eos # (Auto) 0.16 (0.02-0.50) K/mm3 Baso # (Auto) 0.02 (0.00-0.10) K/mm3 Abs Immat Gran (auto) 0.01 H (0.00-0.00) K/mm3 Absolute Neuts (auto) 3.90 (1.70-7.20) K/mm3 Absolute Nucleated RBC 0.00 (0.00-0.00) K/mm3 Nucleated RBC % 0.0 (0-0.0) % Sodium 141 (137-145) mmol/L Potassium 4.0 (3.4-5.0) mmol/L Chloride 105 (98-107) mmol/L Carbon Dioxide 27 (22-30) mmol/L Anion Gap 9 (4-12) mmol/L BUN 14 (9-20) mg/dL Creatinine 1.32 H (0.7-1.3) mg/dL Estim Creat Clear Calc 42 ml/min Estimated GFR 52 L (59 - ) Glucose 93 (65-110) mg/dL Calculated Osmolality 292 (285-295) mOsm/kg Calcium 8.9 (8.4-10.2) mg/dL Magnesium 2.1 (1.6-2.3) mg/dL Total Bilirubin 0.7 (0.2-1.3) mg/dL AST 34 (17-59) U/L ALT 25 (6-50) U/L Alkaline Phosphatase 68 (38-126) U/L Troponin I < 0.012 (0.000-0.034) ng/mL NT-Pro-B Natriuret Pep 2620 H (19.9-100) pg/mL Total Protein 6.5 (6.3-8.2) g/dL Albumin 4.0 (3.5-5.1) g/dL Influenza A (RT-PCR) Negative (Negative) Influenza B (RT-PCR) Negative (Negative) RSV (RT-PCR) Negative (Negative) SARS-CoV-2 RNA (RT-PCR) Positive A (Negative) Discharge Plan Discharge Clinical Impression: PAF (paroxysmal atrial fibrillation), Systolic dysfunction, COVID Patient Disposition: Home Condition: Stable Instructions: COVID-19 and Chronic Health Conditions (ED) Patient Language: Arabic Prescriptions: New [place]vrio (EUA) 200 mg capsule 800 mg PO Q12H 5 Days Qty: 40 0RF furosemide [Lasix] 20 mg tablet 20 mg PO DAILY Qty: 5 0RF benzonatate 200 mg capsule 200 mg PO BID PRN (Reason: cough) Qty: 20 0RF L[place]vrio (EUA) 200 mg capsule 800 mg PO Q12H 5 Days Qty: 40 0RF benzonatate 200 mg capsule 200 mg PO BID PRN (Reason: cough) Qty: 20 0RF furosemide [Lasix] 20 mg tablet 20 mg PO DAILY Qty: 5 0RF No Action losartan 50 mg tablet 50 mg PO DAILY Qty: 30 5RF multivitamin [Daily Multiple] Tablet 1 tablet PO DAILY fluticasone propionate 50 mcg/actuation [place],Suspension 1 spray INTRANASAL DAILY PRN (Reason: Congestion) Eliquis 5 mg tablet See Rx Instructions .ROUTE .COMPLEX Qty: 60 5RF Dose Instruction: TAKE 1 TABLET BY MOUTH TWICE A DAY Rx Instructions: TAKE 1 TABLET BY MOUTH TWICE A DAY metoprolol succinate 25 mg tablet extended release 24 hr See Rx Instructions .ROUTE .COMPLEX Qty: 90 2RF Dose Instruction: TAKE 1 TABLET BY MOUTH DAILY Rx Instructions: TAKE 1 TABLET BY MOUTH DAILY Follow-up/Referrals: Matthew Townsend MD [Primary Care Provider, Internal Medicine]
[2025-02-11 07:12] LABS: Hematocrit 42.5 % (37.0-46.0); Hemoglobin 13.9 g/dL (12.4-15.3); Immature Granulocyte Percent A 0.2 % (0.0-0.0); Lymphocytes Absolute Auto 0.99 K/mm3 (1.10-4.50); Mean Corpuscular HGB Conc 32.7 g/dL (32-36); Mean Corpuscular Hemoglobin 30.8 pg (27.0-31.0); Mean Corpuscular Volume 94.2 fL (78.0-102.0); Nucleated Red Blood Cells Absolute Auto 0.00 K/mm3 (0.00-0.00); Nucleated Red Blood Cells Perc 0.0 % (0-0.0); Platelet Count Result 224 K/mm3 (150-420); Red Blood Count 4.51 M/mm3 (4.70-6.10); White Blood Count 5.9 K/mm3 (4.8-10.8)
[2025-02-11 07:21] LABS: Influenza A QL RT-PCR Negative (Negative); Influenza B QL RT-PCR Negative (Negative); RSV RNA, RT-PCR Negative (Negative); SARS-CoV-2 RNA PCR Positive (Negative)
[2025-02-11 07:25] LABS: Alanine Aminotransferase 25 U/L (6-50); Albumin Level 4.0 g/dL (3.5-5.1); Alkaline Phosphatase 68 U/L (38-126); Anion Gap 9 mmol/L (4-12); Aspartate Amino Transferase 34 U/L (17-59); Bilirubin,Total 0.7 mg/dL (0.2-1.3); Blood Urea Nitrogen 14 mg/dL (9-20); Calcium 8.9 mg/dL (8.4-10.2); Carbon Dioxide 27 mmol/L (22-30); Chloride 105 mmol/L (98-107); Estimated CRCL calculation 42 ml/min; Estimated Glomerular Filt Rate 52; Glucose 93 mg/dL (65-110); Magnesium 2.1 mg/dL (1.6-2.3); Osmolality Calculated 292 mOsm/kg (285-295); Potassium 4.0 mmol/L (3.4-5.0); Sodium 141 mmol/L (137-145); Total Protein 6.5 g/dL (6.3-8.2)
[2025-02-11 07:36] LABS: NT Pro B Type Natriuretic Pept 2620 pg/mL (19.9-100); Troponin I < 0.012 ng/mL (0.000-0.034)
[2025-02-11] MEDS: FUROSEMIDE INJ 40 MG/4 ML VIAL IV PUSH (07:52)
[2025-02-11] MEDS: METOPROLOL TARTRATE INJ 5 MG/5 ML VIAL IV PUSH (07:52)
== END 2025-02-11 08:35 | disposition home or self-care (01) ==
PROVIDERS: Emergency Medicine; Emergency Provider Family Medicine; PCP Internal Medicine
DX: I48.0 Paroxysmal atrial fibrillation (principal); U07.1 COVID-19; I50.9 Heart failure, unspecified; E78.5 Hyperlipidemia, unspecified; J43.9 Emphysema, unspecified; Z87.891 Personal history of nicotine dependence
CPT/HCPCS: 36415; 71045; 80053; 83735; 83880; 84484; 85025; 87637; 93005; 96374; 96375; 99284; J0616; J1938